=== PATIENT | male | born 1980 | race Caucasian/White ===

== ENCOUNTER 2017-12-21 16:07 | Emergency (ER) | payer OTHER ==
[2017-12-21 16:23] VITALS: BP 134/94
[2017-12-21] MEDS ORDERED: HYDROmorphone 0.5 MG/0.5 ML SYRINGE IVPUSH ONE ×2 (16:34→18:24)
[2017-12-21] MEDS ORDERED: Metoclopramide 10 MG/2 ML SDV IVPUSH ONE (16:34)
[2017-12-21] MEDS ORDERED: Ketorolac 30 MG/ML SDV IVPUSH SCH (16:45)
[2017-12-21] MEDS ORDERED: Sodium Chloride 0.9% 1,000 ML IV SCH (16:45)
--- NOTE | 2017-12-21 16:45 | EDM.PDOC ---
ED HPI GENERAL MEDICAL PROBLEM - General Chief Complaint: Genitourinary Problem Stated Complaint: KIDNEY STONES Time Seen by Provider: 12/21/17 16:33 Source of Information: Reports: Patient History Limitations: Reports: No Limitations - History of Present Illness INITIAL COMMENTS - FREE TEXT/NARRATIVE: 37-year-old male presents to the ED with acute onset of severe left lower quadrant and pelvic pain. Patient has a history of recurrent kidney stones for many years. States on average he passes at least a stone per year. He's had lithotripsy 3. He states he's been having left flank pain left-sided abdominal pain for about a week. The pain hit very hard and was down in his pelvis and referred into his peni He states he just can't relax due to the severity of the pain to pass this stone. He does have left flank pain as well has not vomited but feels nauseated. He's not noticed any blood in his urine per se today.s. Onset: Today Onset Date: 12/21/17 Onset Time: 12:00 Duration: Hour(s): (Sudden onset of severe left lower quadrant abdominal pain referred to the penis.) Location: Reports: Abdomen (Left lower quadrant of the abdomen with referred pain to the penis.), Back ( Suspect renal colic. Left left flank pain.) Quality: Reports: Ache, Sharp, Stabbing Severity: Severe Improves with: Reports: None (Pain is 8 or 9 at 10. There are near made him faint when it hit at noon today.) Worsens with: Reports: None Context: Reports: Other. Denies: Activity, Exercise, Lifting, Sick Contact, Trauma Associated Symptoms: Reports: Nausea/Vomiting. Denies: Confusion (History of passing multiple kidney stones.), Chest Pain, cough w sputum, Diaphoresis, Fever /Chills, Headaches, Loss of Appetite, Malaise, Rash, Seizure, Shortness of Breath, Syncope Treatments BOLT THREADER: Reports: Other (see below) Other Treatments BOLT THREADER: none Bladder Pain Score (Numeric/FACES): 7 - Related Data Allergies Allergy/AdvReac Type Severity Reaction Status Date / Time No Known Allergies Allergy Verified 08/29/15 11:16 Home Meds: Home Meds oxyCODONE HCl/Acetaminophen [Percocet 5-325 mg Tablet] 1 - 2 each PO Q4H PRN # 20 tablet 12/21/17 [Rx] Past Medical History Genitourinary History: Reports: Pyelonephritis, Renal Calculus Other Genitourinary History: Kidney Stones, Left Sponge Kidney Psychiatric History: Reports: Anxiety, PTSD - Past Surgical History Male Surgical History: Reports: Lithotripsy (ESWL) Social & Family History - Tobacco Use Smoking Status *Q: Current Every Day Smoker Years of Tobacco use: 25 Packs/Tins Daily: 1 - Caffeine Use Caffeine Use: Reports: Coffee, Soda - Recreational Drug Use Recreational Drug Use: No - Living Situation & Occupation Living situation: Reports: Single Occupation: Employed ED ROS GENERAL - Review of Systems Review Of Systems: See Below Constitutional: Reports: Decreased Appetite. Denies: Fever, Chills, Malaise, Weakness, Fatigue, Weight Loss HEENT: Reports: No Symptoms Respiratory: Reports: No Symptoms Cardiovascular: Reports: No Symptoms Endocrine: Reports: No Symptoms GI/Abdominal: Reports: Abdominal Pain (Left lower quadrant suprapubic pressure discomfort.) : Reports: Flank Pain (Left flank pain.), Other (Severe pain felt in his penis. Either referred pain or perhaps stone is embedded in the penile urethra.) Skin: Reports: No Symptoms Neurological: Reports: No Symptoms ED EXAM, RENAL/ - Physical Exam Exam: See Below Exam Limited By: No Limitations General Appearance: Alert, WD/WN, Moderate Distress (He is in obvious discomfort.) Eye Exam: Bilateral Eye: Normal Inspection Neck: Normal Inspection, Supple, Non-Tender, Full Range of Motion. No: Lymphadenopathy (L), Lymphadenopathy (R) Respiratory/Chest: No Respiratory Distress, Lungs Clear, Normal Breath Sounds Cardiovascular: Normal Peripheral Pulses, Regular Rate, Rhythm, No Edema, No Gallop, No Murmur GI/Abdominal: Normal Bowel Sounds, Soft, Non-Tender, No Organomegaly, No Abnormal Bruit, No Mass (Male) Exam: No Hernia Back Exam: CVA Tenderness (L) (Moderate). No: CVA Tenderness (R) Extremities: Normal Inspection, Normal Range of Motion, Non-Tender Neurological: Alert, Oriented, CN II-XII Intact, Normal Cognition, Normal Gait Psychiatric: Normal Affect, Normal Mood Skin Exam: Warm, Dry, Intact, Normal Color, No Rash Course - Vital Signs Last Recorded V/S: Last Vital Signs Temp 37.7 C 12/21/17 16:20 Pulse 91 12/21/17 16:20 Resp 20 12/21/17 16:20 BP 134/94 H 12/21/17 16:20 Pulse Ox 98 12/21/17 16:20 - Orders/Labs/Meds Orders: Active Orders 24 hr Category Date Time Status UA W/MICROSCOPIC [URIN] Stat Lab 12/21/17 16:28 Ordered Labs: Laboratory Tests 12/21/17 Range/Units 16:28 Urine Color Yellow (Yellow) Urine Appearance Slt cloudy H (Clear) Urine pH 5.5 (5.0-8.0) Ur Specific [place] > or = 1.030 (1.005-1.030) Urine Protein 2+ H (Negative) Urine Glucose (UA) Negative (Negative) Urine Ketones Negative (Negative) Urine Occult Blood 3+ H (Negative) Urine Nitrite Negative (Negative) Urine Bilirubin Negative (Negative) Urine Urobilinogen 0.2 (0.2-1.0) Ur Leukocyte Esterase Negative (Negative) Urine RBC 10-20 H (0-5) /hpf Urine WBC 0-5 (0-5) /hpf Ur Epithelial Cells 0-5 (0-5) /hpf Urine Bacteria Not seen (FEW) /hpf Urine Mucus Moderate H (FEW) /hpf Meds: Medications Discontinued Medications Generic Name Dose Route Start Last Admin Trade Name Jersonq PRN Reason Stop Dose Admin Hydromorphone HCl 0.5 mg 12/21/17 16:34 12/21/17 16:43 Dilaudid IVPUSH 12/21/17 16:35 0.5 mg ONETIME ONE Administration Hydromorphone HCl 0.5 mg 12/21/17 18:24 12/21/17 18:29 Dilaudid IVPUSH 12/21/17 18:25 0.5 mg ONETIME ONE Administration Sodium Chloride 1,000 mls @ 150 mls/hr 12/21/17 16:45 12/21/17 16:42 Normal Saline IV 150 mls/hr ASDIRECTED FIDELIA Administration Ketorolac Tromethamine 30 mg 12/21/17 16:45 12/21/17 16:48 Toradol IVPUSH 30 mg ONETIME FIDELIA Administration Metoclopramide HCl 7.5 mg 12/21/17 16:34 12/21/17 16:43 Reglan IVPUSH 12/21/17 16:35 7.5 mg ONETIME ONE Administration - Radiology Interpretation Free Text/Narrative:: 37-year-old male presents to the ED with acute onset of severe left lower quadrant abdominal pain rating towards his penis. He is actually holding onto his penis due to the severity of the pain on rocking back and forth in pain. Patient has a history of passing multiple kidney stones over multiple years. He' s had lithotripsy 3 in the past. He brings a container the contain multiple small stones. Is on average he passes one every 6 months to a year. Current pain started in his left flank about a week ago and is been nagging away abdomen for the last week. Today at noon the pain hit suddenly and severely in his left lower quadrant radiating towards his groin and penis. He is unsure if the stone is in his penile urethra or just feels like it is. At any rate he came to the ED seeking analgesia. Plan IV normal saline 150 mils per hour. Toradol 30 mg IV with Reglan 7.5 mg IV and Dilaudid 0.5 mg IV for acute pain relief. - Re-Assessments/Exams Free Text/Narrative Re-Assessment/Exam: 12/21/17 17:30 patient has been able to squeeze out a bit of urine. He still is in pain but he states it's tolerable at this point time. He still feels the pain is in his penis. Unclear if this is referred or if the stone is truly in his penile shaft or prostatic urethra. Plan I'm going to x-ray his pelvis and hopefully visualize the penile shaft as well to see if there is a stone that we may be able to remove with a small catheter.Urinalysis shows 2+ protein 3+ occult blood on the dip. Leukocyte Estrace was negative. On the micro-there is tender 20 RBCs per high-power field and moderate amount of mucus. 12/21/17 18:36 pelvis x-ray was not that useful. Survey do not show any stone within the penile urethra. I suspect this is a stone right at the UVJ on the left side. Patient's pain is coming back and we bit. He is a very stoic gentleman. I will give him a repeat Dilaudid 0.5 mg IV. Will be to discharge him home with a repeat or refill of Percocet 5/325 milligrams 20 tablets. He may take one or 2 every 4-6 hours as needed for pain relief. Hopefully the stone will pass within the next 24-36 hours. Departure - Departure Time of Disposition: 18:37 Disposition: Home, Self-Care 01 Condition: Fair Clinical Impression: Renal colic on left side - Discharge Information Prescriptions: oxyCODONE HCl/Acetaminophen [Percocet 5-325 mg Tablet] 1 - 2 each PO Q4H PRN # 20 tablet PRN Reason: pain relief. Instructions: Renal Colic, [id number] Referrals: PCP,None [Primary Care Provider] - Forms: ED Department Discharge Additional Instructions: Evaluation the emergency room today in regards to severe lower pelvic pain and penile pain discomfort. This appears to be due to renal colic which you have spends many times in the past. In terms that is never bothered you quite so badly in the groin and penis. This suggests that there may be a stone wedged within the penile urethra or prostatic urethra. Treated initially in the ED with IV fluids and pain medication Dilaudid 0.5 mg IV with Toradol 30 mg IV and Reglan 7.5 mg IV. This didn't relieve her pain for a period of time. Before he left your pain was coming back and therefore he a lot of 0.5 mg was repeated intravenously. Treatment at home is to drink plenty of fluids of course. May use Percocet tabs 5/3/25 milligrams strength one or 2 every 4-6 hours needed for pain relief. Note she cannot operate a motor vehicle or machinery if you are under the influence of narcotic pain medication. Stone typically will pass within the next 24-48 hours. If pain worsens or nausea vomiting occurs return to the ED for pain management.
--- NOTE | 2017-12-21 19:16 | CR ---
Pelvis: AP view of the pelvis was obtained. Calcifications within the left pelvis noted and it is difficult to exclude left ureteral calculi. Other calcifications appear to represent phleboliths. No calcifications are seen along the course of the prostate urethra or penile urethra. Joint spaces within both hips are maintained. Multiple calcifications are seen overlying the left kidney compatible with renal calculi. No additional abnormality is seen. Impression: 1. Renal calculi. Calcifications along the left pelvis and difficult to exclude ureteral calculi. 2. No calcifications in the region of the prostate urethra or penile urethra. 3. AP pelvis study is otherwise unremarkable. Diagnostic code #3
== END 2017-12-21 18:46 | disposition home or self-care (01) ==
LOC: JD.ED 16:07
DX: N23 Unspecified renal colic (principal); F17.210 Nicotine dependence, cigarettes, uncomplicated
CPT/HCPCS: 72170; 81001; 96361; 96374; 96375; 96376; 99284; J1170; J1885; J2765; J7040

== ENCOUNTER 2018-12-04 08:25 | Emergency (ER) | payer BC, OTHER ==
[2018-12-04] MEDS ORDERED: Sodium Chloride 0.9% 10 ML Syringe FLUSH PRN (08:41)
[2018-12-04] MEDS ORDERED: Ondansetron 4 MG/2 ML SDV IVPUSH ONE (08:41)
[2018-12-04] MEDS ORDERED: HYDROmorphone 1 MG/ML Syringe IVPUSH ONE ×2 (08:42→10:50)
[2018-12-04] MEDS ORDERED: Ketorolac 30 MG/ML SDV IVPUSH ONE (08:42)
[2018-12-04] MEDS ORDERED: Sodium Chloride 0.9% 1,000 ML IV SCH (08:45)
[2018-12-04 08:46] VITALS: BP 148/90
--- NOTE | 2018-12-04 09:37 | EDM.PDOC ---
ED HPI GENERAL MEDICAL PROBLEM - General Chief Complaint: Flank Pain Stated Complaint: POSSIBLE KIDNEY STONE Time Seen by Provider: 12/04/18 08:36 Source of Information: Reports: Patient History Limitations: Reports: No Limitations - History of Present Illness INITIAL COMMENTS - FREE TEXT/NARRATIVE: The patient presents with left flank pain and left sided abdominal pain. This started this morning. He has nausea and vomiting. 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 He had lithotripsy X 2. His last one was about 4 to 5 years ago before he moved up here from [place]. He has not had much problems since then. He has had kidney stones since he was 14. He says lately he will have some discomfort and pass them without problems. He has more pain now, nausea and vomiting. He has no fever, chills, cough, congestion or runny nose. He denies having any other health problems. Onset: Sudden Duration: Hour(s): Location: Reports: Abdomen, Back Quality: Reports: Sharp Severity: Severe Improves with: Reports: None Worsens with: Reports: None Associated Symptoms: Reports: Nausea/Vomiting. Denies: Chest Pain, Cough, Fever /Chills, Headaches, Shortness of Breath Left Flank Pain Score (Numeric/FACES): 7 - Related Data Allergies Allergy/AdvReac Type Severity Reaction Status Date / Time No Known Allergies Allergy Verified 12/04/18 08:40 Home Meds: Home Meds Ciprofloxacin HCl [Cipro] 500 mg PO BID #10 tablet 12/04/18 [Rx] oxyCODONE HCl/Acetaminophen [Percocet 5-325 mg Tablet] 1 - 2 each PO Q6HR PRN # 20 tablet 12/04/18 [Rx] Past Medical History HEENT History: Reports: None Cardiovascular History: Reports: None Respiratory History: Reports: None Gastrointestinal History: Reports: None Genitourinary History: Reports: Pyelonephritis, Renal Calculus Other Genitourinary History: Kidney Stones, Left Sponge Kidney Musculoskeletal History: Reports: None Neurological History: Reports: None Psychiatric History: Reports: Anxiety, PTSD Endocrine/Metabolic History: Reports: None Immunologic History: Reports: None Oncologic (Cancer) History: Reports: None Dermatologic History: Reports: None - Infectious Disease History Infectious Disease History: Reports: None - Past Surgical History Head Surgeries/Procedures: Reports: None HEENT Surgical History: Reports: None Cardiovascular Surgical History: Reports: None Male Surgical History: Reports: Lithotripsy (ESWL) Neurological Surgical History: Reports: None Social & Family History - Family History Family Medical History: Noncontributory GI: Reports: None : Reports: Renal Calculus Endocrine/Metabolic: Reports: Diabetes, type II - Tobacco Use Packs/Tins Daily: 1 - Caffeine Use Caffeine Use: Reports: Coffee - Recreational Drug Use Recreational Drug Use: Yes Drug Use in Last 12 Months: No Recreational Drug Type: Reports: Methamphetamine Recreational Drug Use Frequency: Not Used In Over 6 Months - Living Situation & Occupation Living situation: Reports: Single Occupation: Employed ED ROS GENERAL - Review of Systems Review Of Systems: See Below Constitutional: Reports: No Symptoms HEENT: Reports: No Symptoms Respiratory: Reports: No Symptoms Cardiovascular: Reports: No Symptoms Endocrine: Reports: No Symptoms GI/Abdominal: Reports: Abdominal Pain, Nausea, Vomiting. Denies: Diarrhea : Reports: Flank Pain Musculoskeletal: Reports: Back Pain ED EXAM, RENAL/ - Physical Exam Exam: See Below Exam Limited By: No Limitations General Appearance: Alert, No Apparent Distress Ears: Normal External Exam Nose: Normal Inspection Head: Atraumatic, Normocephalic Neck: Normal Inspection Respiratory/Chest: No Respiratory Distress, Lungs Clear, Normal Breath Sounds Cardiovascular: Regular Rate, Rhythm, No Edema, No Murmur GI/Abdominal: Soft, No Organomegaly, No Mass, Tender (Moderate to the left lower abdomen) Back Exam: CVA Tenderness (L) Extremities: Normal Inspection Neurological: Alert, Oriented, No Motor/Sensory Deficits Course - Vital Signs Last Recorded V/S: Last Vital Signs Temp 98.2 F 12/04/18 08:44 Pulse 94 12/04/18 08:44 Resp 16 12/04/18 08:44 BP 148/90 H 12/04/18 08:44 Pulse Ox 96 12/04/18 08:44 - Orders/Labs/Meds Orders: Active Orders 24 hr Category Date Time Status Peripheral IV Care [RC] . DIRECTED Care 12/04/18 08:41 Active CULTURE URINE [RM] Stat Lab 12/04/18 09:00 Received Sodium Chloride 0.9% [Normal Saline] 1,000 ml Med 12/04/18 08:45 Active IV ASDIRECTED Sodium Chloride 0.9% [Saline Flush] Med 12/04/18 08:41 Active 10 ml FLUSH ASDIRECTED PRN ED Antiemetic Medication Reflex [OM.PC] Stat Oth 12/04/18 08:41 Ordered Peripheral IV Insertion Adult [OM.PC] Stat Oth 12/04/18 08:41 Ordered Medication Orders Sodium Chloride (Normal Saline) 1,000 mls @ 125 mls/hr IV ASDIRECTED FIDELIA Last Admin: 12/04/18 08:59 Dose: 125 mls/hr Sodium Chloride (Saline Flush) 10 ml FLUSH ASDIRECTED PRN PRN Reason: Keep Vein Open Last Admin: 12/04/18 09:00 Dose: 10 ml Labs: Laboratory Tests 12/04/18 12/04/18 12/04/18 Range/Units 08:30 08:30 09:00 WBC 6.18 (4.23-9.07) K/mm3 RBC 4.93 (4.63-6.08) M/mm3 Hgb 14.1 (13.7-17.5) gm/L Hct 43.0 (40.1-51.0) % MCV 87.2 (79.0-92.2) fl MCH 28.6 (25.7-32.2) pg MCHC 32.8 (32.2-35.5) g/dl RDW Std Deviation 42.9 (35.1-43.9) fL Plt Count 286 (163-337) K/mm3 MPV 10.5 (9.4-12.3) fl Neut % (Auto) 55.7 (34.0-67.9) % Lymph % (Auto) 31.4 (21.8-53.1) % [place] % (Auto) 8.7 (5.3-12.2) % Eos % (Auto) 3.2 (0.8-7.0) Baso % (Auto) 0.8 (0.1-1.2) % Neut # (Auto) 3.44 (1.78-5.38) K/mm3 Lymph # (Auto) 1.94 (1.32-3.57) K/mm3 [place] # (Auto) 0.54 (0.30-0.82) K/mm3 Eos # (Auto) 0.20 (0.04-0.54) K/mm3 Baso # (Auto) 0.05 (0.01-0.08) K/mm3 Sodium 138 (136-145) mEq/L Potassium 4.0 (3.5-5.1) mEq/L Chloride 104 (98-107) mEq/L Carbon Dioxide 24 (21-32) mEq/L Anion Gap 14.0 (5-15) BUN 12 (7-18) mg/dL Creatinine 1.3 (0.7-1.3) mg/dL Est Cr Clr Drug Dosing 74.14 mL/min Estimated GFR (MDRD) > 60 (>60) mL/min BUN/Creatinine Ratio 9.2 L (14-18) Glucose 114 H (74-106) mg/dL Calcium 9.0 (8.5-10.1) mg/dL Total Bilirubin 0.2 (0.2-1.0) mg/dL AST 18 (15-37) U/L ALT 25 (16-63) U/L Alkaline Phosphatase 92 (46-116) U/L Total Protein 8.0 (6.4-8.2) g/dl Albumin 3.8 (3.4-5.0) g/dl Globulin 4.2 gm/dL Albumin/Globulin Ratio 0.9 L (1-2) Lipase 154 (73-393) U/L Urine Color Yellow (Yellow) Urine Appearance Slt cloudy H (Clear) Urine pH 5.5 (5.0-8.0) Ur Specific [place] > or = 1.030 (1.005-1.030) Urine Protein 2+ H (Negative) Urine Glucose (UA) Negative (Negative) Urine Ketones Negative (Negative) Urine Occult Blood 3+ H (Negative) Urine Nitrite Negative (Negative) Urine Bilirubin Negative (Negative) Urine Urobilinogen 0.2 (0.2-1.0) Ur Leukocyte Esterase Trace H (Negative) Urine RBC 50-75 H (0-5) /hpf Urine WBC 10-20 H (0-5) /hpf Ur Epithelial Cells 0-5 (0-5) /hpf Urine Bacteria Few H (FEW) /hpf Urine Mucus Many H (FEW) /hpf Meds: Medications Generic Name Dose Route Start Last Admin Trade Name Freq PRN Reason Stop Dose Admin Sodium Chloride 1,000 mls @ 125 mls/hr 12/04/18 08:45 12/04/18 08:59 Normal Saline IV 125 mls/hr ASDIRECTED FIDELIA Administration Sodium Chloride 10 ml 12/04/18 08:41 12/04/18 09:00 Saline Flush FLUSH 10 ml ASDIRECTED PRN Administration Keep Vein Open Discontinued Medications Generic Name Dose Route Start Last Admin Trade Name Freq PRN Reason Stop Dose Admin Hydromorphone HCl 1 mg 12/04/18 08:42 12/04/18 08:58 Dilaudid IVPUSH 12/04/18 08:43 1 mg ONETIME ONE Administration Hydromorphone HCl 1 mg 12/04/18 10:50 12/04/18 11:15 Dilaudid IVPUSH 12/04/18 10:51 1 mg ONETIME ONE Administration Hydromorphone HCl 0.5 mg 12/04/18 11:53 12/04/18 12:01 Dilaudid IVPUSH 12/04/18 11:54 0.5 mg ONETIME ONE Administration Ketorolac Tromethamine 30 mg 12/04/18 08:42 12/04/18 08:57 Toradol IVPUSH 12/04/18 08:43 30 mg ONETIME ONE Administration Ondansetron HCl 4 mg 12/04/18 08:41 12/04/18 08:56 Zofran IVPUSH 12/04/18 08:42 4 mg ONETIME ONE Administration - Re-Assessments/Exams Free Text/Narrative Re-Assessment/Exam: 12/04/18 09:36 I ordered an IV NS at 125mL/hr, zofran 4mg IV, labs, UA, CT of his abdomen and pelvis without contrast, dilaudid 1mg IV and toradol 30mg IV. 12/04/18 11:54 His CBC and CMP look good. His UA shows blood and there is some leukocyte esterase and WBCs with bacteria. I will culture his urine and get him on some cipro. His UA shows 1.5cm partially obstructing calculus within the left renal pelvis near the UPJ. Additional partially obstructing calculus within the mid left ureter measuring 5mm. Multiple nonobstructing calculi within both kidneys. Other incidental findings as noted above. I called Dr Heart in [place] the urologist electronic system engineer at [facility] and he will have someone from his office call the patient with a time to come in. He is probably going to have to do surgery. I gave him something more for pain. Departure - Departure Time of Disposition: 12:25 Disposition: Home, Self-Care 01 Condition: Fair Clinical Impression: UTI, Urinary tract infectious disease, Ureteric colic, Renal colic on left side , Nephrolithiasis - Discharge Information *PRESCRIPTION DRUG MONITORING PROGRAM REVIEWED*: No *COPY OF PRESCRIPTION DRUG MONITORING REPORT IN PATIENT JED: No Prescriptions: oxyCODONE HCl/Acetaminophen [Percocet 5-325 mg Tablet] 1 - 2 each PO Q6HR PRN # 20 tablet PRN Reason: Pain Ciprofloxacin HCl [Cipro] 500 mg PO BID #10 tablet Referrals: PCP,None [Primary Care Provider] - Toño Sherman MD [Ordering Only Provider] - 1 Week Forms: ED Department Discharge Additional Instructions: Take the cipro 2 times per day for 5 days. Take the percocet as needed for pain. Dr Heart's office will call you with a time this week to see him. If you do not hear from him by tomorrow, call his office. Please return if you are worse. - My Orders Last 24 Hours: My Active Orders 12/04/18 08:41 Peripheral IV Care [RC] . DIRECTED Sodium Chloride 0.9% [Saline Flush] 10 ml FLUSH ASDIRECTED PRN ED Antiemetic Medication Reflex [OM.PC] Stat Peripheral IV Insertion Adult [OM.PC] Stat 12/04/18 08:45 Sodium Chloride 0.9% [Normal Saline] 1,000 ml IV ASDIRECTED 12/04/18 09:00 CULTURE URINE [RM] Stat - Assessment/Plan Last 24 Hours: My Active Orders 12/04/18 08:41 Peripheral IV Care [RC] . DIRECTED Sodium Chloride 0.9% [Saline Flush] 10 ml FLUSH ASDIRECTED PRN ED Antiemetic Medication Reflex [OM.PC] Stat Peripheral IV Insertion Adult [OM.PC] Stat 12/04/18 08:45 Sodium Chloride 0.9% [Normal Saline] 1,000 ml IV ASDIRECTED 12/04/18 09:00 CULTURE URINE [RM] Stat
--- NOTE | 2018-12-04 10:13 | CT ---
CT abdomen and pelvis Technique: Multiple axial sections were obtained from above the dome of the diaphragm inferiorly through the pubic symphysis. Intravenous and oral contrast was not utilized. Study has been performed as a ureteral stone protocol. Comparison: No prior CT exam, previous abdominal x-ray of 03/11/15. Numerous renal calculi are seen within both kidneys. One calcification within the left kidney lies within the left renal pelvis close to the UPJ. This calcification measures 1.5 cm and likely causes mild partial obstruction of the more proximal collecting system. Partially obstructing stone is noted within the mid left ureter measuring 5 mm in size which is located slightly below the level of the pelvic brim. No additional ureteral calculi are seen. Visualized lung bases show nothing acute. Liver has an unremarkable noncontrast appearance. Spleen appears within normal limits. Adrenal glands show no nodule. Pancreas appears within normal limits. Gallbladder contains no calcified gallstones. Aorta shows no aneurysm. Appendix is seen which is normal. No pelvic mass or adenopathy is appreciated. No free fluid or inflammatory change is seen. Bone window settings were reviewed which show disc space narrowing at L5-S1 with vacuum phenomena. Impression: 1. 1.5 cm partially obstructing calculus within the left renal pelvis near the UPJ. Additional partially obstructing calculus within the mid left ureter measuring 5 mm. 2. Multiple nonobstructing calculi within both kidneys. 3. Other incidental finding as noted above. Diagnostic code #3
[2018-12-04] MEDS ORDERED: HYDROmorphone 0.5 MG/0.5 ML Syringe IVPUSH ONE (11:53)
== END 2018-12-04 12:38 | disposition home or self-care (01) ==
LOC: JD.ED 08:25
DX: N20.2 Calculus of kidney with calculus of ureter (principal); N23 Unspecified renal colic; N39.0 Urinary tract infection, site not specified; F17.210 Nicotine dependence, cigarettes, uncomplicated; Z79.899 Other long term (current) drug therapy
CPT/HCPCS: 36415; 74176; 80053; 81001; 83690; 85025; 87086; 96361; 96374; 96375; 96376; 99284; J1170; J1885; J2405; J7040

== ENCOUNTER 2018-12-22 17:37 | Emergency (ER) | payer BC ==
[2018-12-22 17:46] VITALS: BP 171/96
[2018-12-22] MEDS ORDERED: HYDROmorphone 1 MG/ML Syringe IM ONE (17:55)
--- NOTE | 2018-12-22 18:07 | EDM.PDOC ---
ED HPI GENERAL MEDICAL PROBLEM - General Chief Complaint: Genitourinary Problem Stated Complaint: ABDOMINAL PAIN Time Seen by Provider: 12/22/18 17:45 Source of Information: Reports: Patient, Old Records, RN Notes Reviewed History Limitations: Reports: No Limitations - History of Present Illness INITIAL COMMENTS - FREE TEXT/NARRATIVE: Patient is a 38-year-old male who presents to the ED for the evaluation of abdominal pain. The patient notes a history of medullary sponge kidney disease , for which he had a PCNL procedure done by the urologist Dr. Sherman on 12/13 , and was sent home with a left-sided nephrostomy tube. He states that he was getting dressed yesterday, and he accidentally tugged on the tube, since then he has been having increased pain that has not subsided with his use of Toradol and oxycodone. He did phone Dr. Sherman in [place], and Dr. Sherman told him to come to the ER to have a CT done to make sure that the balloon did not become dislodged. The patient notes that he feels the pain into his testicles as well. The also states that he has been having some mild anterior abdominal pain since the procedure as well. Dr. Sherman thinks that this might be some free fluid in his pelvis as well from the procedure, as there were some minor complications due to the blowing up of the balloon. Pelvic Pain Score (Numeric/FACES): 8 - Related Data Allergies Allergy/AdvReac Type Severity Reaction Status Date / Time No Known Allergies Allergy Verified 12/22/18 17:46 Home Meds: Home Meds oxyCODONE HCl/Acetaminophen [Percocet 5-325 mg Tablet] 1 - 2 each PO Q6HR PRN # 20 tablet 12/04/18 [Rx] Acetaminophen/oxyCODONE [Percocet 325-5 MG] 1 each PO Q6H PRN #30 tab 12/22/18 [ Rx] Ketorolac [Toradol] 10 mg PO Q6H PRN 12/22/18 [History] Ondansetron [Zofran ODT] 4 mg PO Q8H PRN #28 tab.dis 12/22/18 [Rx] Past Medical History HEENT History: Reports: None Cardiovascular History: Reports: None Respiratory History: Reports: None Gastrointestinal History: Reports: None Genitourinary History: Reports: Pyelonephritis, Renal Calculus Other Genitourinary History: Kidney Stones, Left Sponge Kidney Musculoskeletal History: Reports: None Neurological History: Reports: None Psychiatric History: Reports: Anxiety, PTSD Endocrine/Metabolic History: Reports: None Immunologic History: Reports: None Oncologic (Cancer) History: Reports: None Dermatologic History: Reports: None - Infectious Disease History Infectious Disease History: Reports: None - Past Surgical History Head Surgeries/Procedures: Reports: None HEENT Surgical History: Reports: None Cardiovascular Surgical History: Reports: None Male Surgical History: Reports: Lithotripsy (ESWL) Neurological Surgical History: Reports: None Social & Family History - Family History Family Medical History: Noncontributory GI: Reports: None : Reports: Renal Calculus Endocrine/Metabolic: Reports: Diabetes, type II - Tobacco Use Smoking Status *Q: Never Smoker - Caffeine Use Caffeine Use: Reports: Coffee - Recreational Drug Use Recreational Drug Use: No - Living Situation & Occupation Living situation: Reports: Single Occupation: Employed ED ROS GENERAL - Review of Systems Review Of Systems: See Below Constitutional: Denies: Fever, Chills HEENT: Reports: No Symptoms Respiratory: Reports: No Symptoms Cardiovascular: Reports: No Symptoms Endocrine: Reports: No Symptoms GI/Abdominal: Reports: Abdominal Pain (left lower abd pain) : Reports: Other (catheter pain) Musculoskeletal: Reports: No Symptoms Skin: Reports: No Symptoms Neurological: Reports: No Symptoms Psychiatric: Reports: No Symptoms Hematologic/Lymphatic: Reports: No Symptoms Immunologic: Reports: No Symptoms ED EXAM, RENAL/ - Physical Exam Exam: See Below Exam Limited By: No Limitations General Appearance: Alert, WD/WN, Mild Distress Eye Exam: Bilateral Eye: Normal Inspection Ears: Normal External Exam Nose: Normal Inspection Throat/Mouth: Normal Inspection Head: Atraumatic, Normocephalic Neck: Normal Inspection Respiratory/Chest: No Respiratory Distress, Lungs Clear, Normal Breath Sounds, No Accessory Muscle Use, Chest Non-Tender Cardiovascular: Normal Peripheral Pulses, Regular Rate, Rhythm, No Murmur GI/Abdominal: Normal Bowel Sounds, Soft, Non-Tender, No Distention, No Mass (Male) Exam: Deferred (nephrostomy tube out of top of jeans noted) Extremities: Normal Inspection, Normal Capillary Refill Neurological: Alert, Oriented, Normal Cognition, No Motor/Sensory Deficits Psychiatric: Normal Affect, Normal Mood Skin Exam: Warm, Dry, Intact, Normal Color, No Rash Course - Vital Signs Last Recorded V/S: Last Vital Signs Temp 98.7 F 12/22/18 17:43 Pulse 99 12/22/18 17:43 Resp 16 12/22/18 17:43 BP 171/96 H 12/22/18 17:43 Pulse Ox 98 12/22/18 17:43 - Orders/Labs/Meds Meds: Medications Discontinued Medications Generic Name Dose Route Start Last Admin Trade Name Freq PRN Reason Stop Dose Admin Hydromorphone HCl 1 mg 12/22/18 17:55 12/22/18 18:03 Dilaudid IM 12/22/18 17:56 1 mg ONETIME ONE Administration Ondansetron HCl 4 mg 12/22/18 19:13 Zofran Odt PO 12/22/18 19:14 ONETIME ONE - Re-Assessments/Exams Free Text/Narrative Re-Assessment/Exam: 12/22/18 18:09 Patient presents to the ED for the evaluation of a possible displaced nephrostomy tube. I have ordered 1 mg IM Dilaudid and an abdomen pelvis CT without contrast for further evaluation. 12/22/18 19:[address] is done, and demonstrates the catheter in satisfactory position, the patient has not pulled the catheter out of position at this time. RN notified me that he did not get much relief from the Dilaudid, but was feeling nauseous. I have ordered 4 mg ODT Zofran for his nausea. Departure - Departure Time of Disposition: 19:37 Disposition: Home, Self-Care 01 Condition: Fair Clinical Impression: LLQ pain - Discharge Information *PRESCRIPTION DRUG MONITORING PROGRAM REVIEWED*: No *COPY OF PRESCRIPTION DRUG MONITORING REPORT IN PATIENT JED: No Prescriptions: Acetaminophen/oxyCODONE [Percocet 325-5 MG] 1 each PO Q6H PRN #30 tab PRN Reason: Pain Ondansetron [Zofran ODT] 4 mg PO Q8H PRN #28 tab.dis PRN Reason: Nausea Instructions: Opioid Pain Medicine Information, [id number] Referrals: PCP,None [Primary Care Provider] - Forms: ED Department Discharge Additional Instructions: You have been evaluated in the ED tonight for abdominal pain. Your CT demonstrated that the nephrostomy tube is in good placement, and has not become dislodged. You have been given a prescription for oxycodone 5/325 please take one tab every 6 hours as needed for pain relief. You have been given a prescription for Zofran please take one tab under your tongue every 8 hours as needed for nausea. These have been electronically sent to the [place] pharmacy located in the [facility]. Please follow up with your urologist next Tuesday as previously scheduled. Please return to the ED if your symptoms should change or worsen.
--- NOTE | 2018-12-22 18:57 | CT ---
CT abdomen and pelvis Technique: Multiple axial sections were obtained from above the kidneys inferiorly through the pubic symphysis. Intravenous oral contrast not utilized. Findings: Left-sided nephrostomy tube is seen. End of the nephrostomy tube is coiled within the renal pelvis. Left ureteral stent is also seen which appears coiled within the renal pelvis. Distal end of the stent does not lie within the bladder and terminates within the distal ureter. Multiple small nonobstructing calculi are seen within both kidneys. Largest calcification overlies the nephrostomy tube and stent within the left renal pelvis. No definite calcifications are seen within the ureters at this time. Visualized adrenal glands are unremarkable. Visualized liver and spleen shows no discrete abnormality. Appendix is seen which is normal. Aorta shows no aneurysm. Visualized pancreas is normal. No retroperitoneal adenopathy or mesenteric abnormalities are seen. No pelvic mass or adenopathy is seen. Bone window settings were reviewed which shows disc space narrowing at L5-S1 with vacuum phenomena and posterior spurring. Impression: 1. Satisfactory position of left-sided nephrostomy tube with proximal tip lying within the renal pelvis. 2. Left ureteral stent is seen with proximal end being within the renal pelvis and distal end being within the distal ureter and not within the bladder. 3. Numerous calcifications within both kidneys. Largest calcification within the left renal pelvis which is seen on prior CT exam and overlaps the ureteral stent and nephrostomy tube. 4. No definite ureteral calculi are seen. 5. Other incidental findings. Diagnostic code #3
[2018-12-22] MEDS ORDERED: Ondansetron 4 MG Tab.DIS PO ONE (19:13)
== END 2018-12-22 20:00 | disposition home or self-care (01) ==
LOC: JD.ED 17:37
DX: R10.32 Left lower quadrant pain (principal); F41.9 Anxiety disorder, unspecified; Z79.899 Other long term (current) drug therapy
CPT/HCPCS: 74176; 96372; 99284; A9270; J1170

== ENCOUNTER 2019-12-31 14:47 | Inpatient (IN) | payer BC ==
[2019-12-31] MEDS ORDERED: Ondansetron 4 MG/2 ML SDV IVPUSH ONE (15:22)
[2019-12-31] MEDS ORDERED: Sodium Chloride 0.9% 10 ML Syringe FLUSH PRN (15:22)
--- NOTE | 2019-12-31 15:32 | EDM.PDOC ---
ED HPI GENERAL MEDICAL PROBLEM - General Chief Complaint: Gastrointestinal Problem Stated Complaint: VOMITING X 1 WEEK NEEDS FLUIDS Time Seen by Provider: 12/31/19 14:56 Source of Information: Reports: Patient History Limitations: Reports: No Limitations - History of Present Illness INITIAL COMMENTS - FREE TEXT/NARRATIVE: Patient is a 39-year-old male who presents to the emergency department with complaints of generalized abdominal pain and vomiting. He verbalized that he has a 10-year history of chronic opioid use, as well as a 6-year history of kratom use. He stopped using these on Tuesday, December 20. He spent 4 days in the [facility] under the care of his psychiatrist, Dr. Arredondo He is somewhat unclear about the treatment he received while at [facility]. At one point he stated that he was weaned off of his Roxicodone, however he then stated that he stopped the medication abruptly and has not taken it since 20 December. He also verbalized that he still takes 1-2 tabs of kratom daily per the direction of his psychiatrist, Dr. Arredondo, to wean off the medication. Since December 20, he has been having problems with generalized abdominal pain and vomiting. He states his symptoms are manageable during the day, however worsened significantly at night. He takes his Effexor in the morning and trazodone at night. He is not able to say if there is a correlation between when he takes his trazodone and his symptoms of nausea and vomiting. He has Zofran for nausea which he states he takes 3 times daily. His last dose was this morning. When asked about his bowel habits , patient is uncertain when he last had a good bowel movement. He states he had a small 1 this morning, however it was "abnormal" and "like a small rock ". He denies any diarrhea, fever, or respiratory complaints. Abdomen Pain Score (Numeric/FACES): 7 - Related Data Allergies Allergy/AdvReac Type Severity Reaction Status Date / Time No Known Allergies Allergy Verified 12/22/18 17:46 Home Meds: Home Meds Ondansetron [Zofran ODT] 4 mg PO Q4HR PRN 12/31/19 [History] Venlafaxine HCl [Venlafaxine ER] 37.5 mg PO DAILY 12/31/19 [History] traZODone HCl [Trazodone HCl] 75 mg PO BEDTIME 12/31/19 [History] Past Medical History HEENT History: Reports: None Cardiovascular History: Reports: None Respiratory History: Reports: None Gastrointestinal History: Reports: None Genitourinary History: Reports: Pyelonephritis, Renal Calculus Other Genitourinary History: Kidney Stones, Left Sponge Kidney Musculoskeletal History: Reports: None Neurological History: Reports: None Psychiatric History: Reports: Addiction, Anxiety, PTSD Endocrine/Metabolic History: Reports: None Immunologic History: Reports: None Oncologic (Cancer) History: Reports: None Dermatologic History: Reports: None - Infectious Disease History Infectious Disease History: Reports: None - Past Surgical History Head Surgeries/Procedures: Reports: None HEENT Surgical History: Reports: None Cardiovascular Surgical History: Reports: None Male Surgical History: Reports: Lithotripsy (ESWL) Neurological Surgical History: Reports: None Social & Family History - Family History Family Medical History: Noncontributory GI: Reports: None : Reports: Renal Calculus Endocrine/Metabolic: Reports: Diabetes, type II - Caffeine Use Caffeine Use: Reports: Coffee - Recreational Drug Use Recreational Drug Use: Yes Drug Use in Last 12 Months: Yes Recreational Drug Type: Reports: Oxycodone, Other (see below) Other Recreational Drug Type: KRATOM - Living Situation & Occupation Living situation: Reports: Single Occupation: Employed ED ROS GENERAL - Review of Systems Review Of Systems: See Below Constitutional: Reports: Decreased Appetite. Denies: Fever, Chills HEENT: Reports: No Symptoms Respiratory: Reports: No Symptoms Cardiovascular: Reports: No Symptoms Endocrine: Reports: No Symptoms GI/Abdominal: Reports: Abdominal Pain, Nausea, Vomiting. Denies: Black Stool, Bloody Stool, Diarrhea : Reports: No Symptoms Musculoskeletal: Reports: No Symptoms Skin: Reports: No Symptoms Neurological: Reports: No Symptoms Psychiatric: Reports: No Symptoms Hematologic/Lymphatic: Reports: No Symptoms Immunologic: Reports: No Symptoms ED EXAM, GI/ABD - Physical Exam Exam: See Below Exam Limited By: No Limitations General Appearance: Alert, WD/WN, No Apparent Distress Respiratory/Chest: No Respiratory Distress, Lungs Clear, Normal Breath Sounds, No Accessory Muscle Use, Chest Non-Tender Cardiovascular: Normal Peripheral Pulses, Regular Rate, Rhythm, No Edema, No Gallop, No JVD, No Murmur, No Rub GI/Abdominal Exam: Normal Bowel Sounds, Soft, No Mass, Tender (Generalized tenderness throughout the abdomen.). No: Distended, Guarding, Rigid, Rebound Neurological: Alert, Oriented, CN II-XII Intact, Normal Cognition, Normal Gait, Normal Reflexes, No Motor/Sensory Deficits Psychiatric: Normal Affect, Normal Mood Skin Exam: Warm, Dry, Intact, Normal Color, No Rash Course - Vital Signs Last Recorded V/S: Last Vital Signs Temp 97.9 F 12/31/19 17:29 Pulse 107 H 12/31/19 17:29 Resp 18 12/31/19 17:29 BP 129/86 12/31/19 17:29 Pulse Ox 100 12/31/19 17:29 Orthostatic Blood Pressure [ 101/74 Standing] Orthostatic Blood Pressure [ 118/87 Supine] - Orders/Labs/Meds Orders: Active Orders 24 hr Category Date Time Status Peripheral IV Care [RC] Q2HR Care 12/31/19 15:22 Active UA W/MICROSCOPIC [URIN] Stat Lab 12/31/19 20:30 Received Sodium Chloride 0.9% [Saline Flush] Med 12/31/19 15:22 Active 10 ml FLUSH ASDIRECTED PRN Peripheral IV Insertion Adult [OM.PC] Stat Oth 12/31/19 15:22 Ordered Medication Orders Acetaminophen (Tylenol) 650 mg PO Q4H PRN PRN Reason: Pain (Mild 1-3)/fever Potassium Chloride 10 meq/ (Premix) 100 mls @ 100 mls/hr IV Q1H [facility] Stop: 01/01/20 02:29 Potassium Chloride/Dextrose/Sod Cl (D5 1/2 Ns W/ 20 Meq/L Kcl) 1,000 mls @ 150 mls/hr IV ASDIRECTED [facility] Last Admin: 12/31/19 20:41 Dose: 150 mls/hr Lorazepam (Ativan) 1 mg IVPUSH Q4H PRN PRN Reason: Anxiety Pantoprazole Sodium (Protonix Iv) 40 mg IVPUSH Q12HR [facility] Last Admin: 12/31/19 20:29 Dose: 40 mg Prochlorperazine Edisylate (Compazine) 5 mg IVPUSH Q6H PRN PRN Reason: Nausea/Vomiting Sodium Chloride (Saline Flush) 10 ml FLUSH ASDIRECTED PRN PRN Reason: Keep Vein Open Last Admin: 05/11/20 15:41 Dose: 10 ml Sucralfate (Carafate) 1 gm PO QIDACANDBED [facility] Venlafaxine HCl (Effexor Xr) 37.5 mg PO DAILY [facility] Labs: Laboratory Tests 12/31/19 12/31/19 12/31/19 Range/Units 15:40 15:40 15:40 WBC 13.50 H (4.23-9.07) K/mm3 RBC 5.82 (4.63-6.08) M/mm3 Hgb 16.5 D (13.7-17.5) gm/dl Hct 48.1 (40.1-51.0) % MCV 82.6 D (79.0-92.2) fl MCH 28.4 (25.7-32.2) pg MCHC 34.3 (32.2-35.5) g/dl RDW Std Deviation 38.3 (35.1-43.9) fL Plt Count 371 H D (163-337) K/mm3 MPV 11.4 (9.4-12.3) fl Neut % (Auto) 62.3 (34.0-67.9) % Lymph % (Auto) 23.0 (21.8-53.1) % [place] % (Auto) 13.9 H (5.3-12.2) % Eos % (Auto) 0.2 L (0.8-7.0) Baso % (Auto) 0.2 (0.1-1.2) % Neut # (Auto) 8.41 H (1.78-5.38) K/mm3 Lymph # (Auto) 3.11 (1.32-3.57) K/mm3 [place] # (Auto) 1.87 H (0.30-0.82) K/mm3 Eos # (Auto) 0.03 L (0.04-0.54) K/mm3 Baso # (Auto) 0.03 (0.01-0.08) K/mm3 Manual Slide Review Abnormal smear Sodium 133 L (136-145) mEq/L Potassium 2.4 L* D (3.5-5.1) mEq/L Chloride 88 L D (98-107) mEq/L Carbon Dioxide 36 H D (21-32) mEq/L Anion Gap 11.4 (5-15) BUN 21 H (7-18) mg/dL Creatinine 1.4 H (0.7-1.3) mg/dL Est Cr Clr Drug Dosing 70.45 mL/min Estimated GFR (MDRD) 56 (>60) mL/min BUN/Creatinine Ratio 15.0 (14-18) Glucose 111 H (74-106) mg/dL Calcium 9.8 (8.5-10.1) mg/dL Phosphorus 2.9 (2.6-4.7) mg/dL Magnesium 2.0 (1.8-2.4) mg/dl Total Bilirubin 0.6 (0.2-1.0) mg/dL AST 14 L (15-37) U/L ALT 25 (16-63) U/L Alkaline Phosphatase 106 (46-116) U/L C-Reactive Protein 0.2 (<1.0) mg/dL Total Protein 8.6 H (6.4-8.2) g/dl Albumin 3.9 (3.4-5.0) g/dl Globulin 4.7 gm/dL Albumin/Globulin Ratio 0.8 L (1-2) Lipase 316 (73-393) U/L Meds: Medications Generic Name Dose Route Start Last Admin Trade Name Freq PRN Reason Stop Dose Admin Acetaminophen 650 mg 12/31/19 19:21 Tylenol PO Q4H PRN Pain (Mild 1-3)/fever Potassium Chloride 10 meq/ 100 mls @ 100 mls/hr 01/01/20 00:30 Premix IV 01/01/20 02:29 Q1H FIDELIA Potassium Chloride/Dextrose/Sod Cl 1,000 mls @ 150 mls/hr 12/31/19 19:30 07/11 20:41 D5 1/2 Ns W/ 20 Meq/L Kcl IV 150 mls/hr ASDIRECTED FIDELIA Administration Lorazepam 1 mg 12/31/19 19:34 Ativan IVPUSH Q4H PRN Anxiety Pantoprazole Sodium 40 mg 12/31/19 21:00 12/31/19 20:29 Protonix Iv IVPUSH 40 mg Q12HR FIDELIA Administration Prochlorperazine Edisylate 5 mg 12/31/19 20:20 Compazine IVPUSH Q6H PRN Nausea/Vomiting Sodium Chloride 10 ml 12/31/19 15:22 12/31/19 15:41 Saline Flush FLUSH 10 ml ASDIRECTED PRN Administration Keep Vein Open Sucralfate 1 gm 12/31/19 22:00 Carafate PO QIDACANDBED FIDELIA Venlafaxine HCl 37.5 mg 01/01/20 09:00 Effexor Xr PO DAILY FIDELIA Discontinued Medications Generic Name Dose Route Start Last Admin Trade Name Freq PRN Reason Stop Dose Admin Sodium Chloride 1,000 mls @ 999 mls/hr 12/31/19 15:30 12/31/19 16:41 Normal Saline IV Infused ASDIRECTED FIDELIA Infusion Potassium Chloride 10 meq/ 100 mls @ 100 mls/hr 12/31/19 16:45 12/31/19 20:28 Premix IV 12/31/19 20:44 100 mls/hr Q1H FIDELIA Administration Sodium Chloride 1,000 mls @ 150 mls/hr 12/31/19 16:45 12/31/19 17:40 Normal Saline IV 150 mls/hr ASDIRECTED FIDELIA Administration Promethazine HCl 12.5 mg/ 50.5 mls @ 100 mls/hr 12/31/19 19:30 Sodium Chloride IV Q6H PRN Nausea/Vomiting Ondansetron HCl 4 mg 12/31/19 15:22 12/31/19 15:41 Zofran IVPUSH 12/31/19 15:23 4 mg ONETIME ONE Administration Ondansetron HCl 4 mg 12/31/19 19:29 Zofran IVPUSH Q4H PRN Nausea/Vomiting Trazodone HCl 75 mg 12/31/19 21:00 Trazodone PO BEDTIME FIDELIA - Re-Assessments/Exams Free Text/Narrative Re-Assessment/Exam: 12/31/19 16:44 Patient's vomiting has improved since the Zofran and IV fluids. Hematology was significant for a white count elevated at 13.5, sodium 133, potassium 2.4, chloride 88, CO2 36, BUN 21, creatinine 1.4. Patient has not been able to produce a urine thus far. Spoke to Dr. Starr, the hospitalist manager non [employer]. He accepted the patient for observation admission for hypokalemia. We attempted to contact [facility] [employer] [facility] to get a copy of the patient's records, however the individual who handles the records did not answer. Voicemail was left to call back. Patient updated on this and he is in agreement. Departure - Departure Time of Disposition: 16:45 Disposition: Refer to Observation Condition: Good Clinical Impression: Hypokalemia - Discharge Information *PRESCRIPTION DRUG MONITORING PROGRAM REVIEWED*: No *COPY OF PRESCRIPTION DRUG MONITORING REPORT IN PATIENT JED: No Sepsis Event Note - Evaluation Sepsis Screening Result: No Definite Risk - Focused Exam Vital Signs: Vital Signs Temp Pulse Resp BP Pulse Ox 12/31/19 15:00 97.5 F 108 H 16 122/93 H 100 Date Exam was Performed: 12/31/19 Time Exam was Performed: 21:18 - My Orders Last 24 Hours: My Active Orders 12/31/19 15:22 Peripheral IV Care [RC] Q2HR Sodium Chloride 0.9% [Saline Flush] 10 ml FLUSH ASDIRECTED PRN Peripheral IV Insertion Adult [OM.PC] Stat 12/31/19 20:30 UA W/MICROSCOPIC [URIN] Stat - Assessment/Plan Last 24 Hours: My Active Orders 12/31/19 15:22 Peripheral IV Care [RC] Q2HR Sodium Chloride 0.9% [Saline Flush] 10 ml FLUSH ASDIRECTED PRN Peripheral IV Insertion Adult [OM.PC] Stat 12/31/19 20:30 UA W/MICROSCOPIC [URIN] Stat
[2019-12-31] MEDS: Sodium Chloride 0.9% 1,000 ML IV SCH ×2 (15:40→17:38)
--- NOTE | 2019-12-31 15:56 | CR ---
Abdomen: Supine and upright views the abdomen were obtained. Comparison: Prior abdominal x-ray of 03/11/15. Findings: Bowel gas pattern appears normal. Several calcification overlying the left kidney possibly due to nonobstructing calculi. Numerous calcifications are seen within the pelvis most likely representing phleboliths. No free air is seen. Bony structures are unremarkable. Impression: 1. Findings as noted above. 2. Nothing acute is definitely appreciated. Diagnostic code #2 This report was dictated in MDT
[2019-12-31] MEDS ORDERED: Sodium Chloride 0.9% 1,000 ML IV SCH (16:45)
[2019-12-31] MEDS: Potassium Chloride 10 MEQ in Premix Bag 1 BAG IV SCH ×5 (16:54→23:49)
[2019-12-31] MEDS ORDERED: Ondansetron 4 MG/2 ML SDV IVPUSH PRN (19:29)
[2019-12-31] MEDS ORDERED: Promethazine 12.5 MG in Sodium Chloride 0.9% 50 ML IV PRN (19:30)
--- NOTE | 2019-12-31 19:50 | PCM.HP.2 ---
H&P History of Present Illness - General Date of Service: 12/31/19 Admit Problem/Dx: Admission Diagnosis/Problem Admission Diagnosis/Problem Hypokalemia - History of Present Illness Initial Comments - Free Text/Narative: 39-year-old male with history of narcotic abuse presents to the emergency department with over a one-week history of nausea and vomiting. Patient states that on December 20 he stopped using oxycodone and kratom. He was admitted to [facility] on December 21- and discharged on the . Patient was having continued difficulty with stopping oxycodone and kratom so he did use some over the next 4 days. Patient has not used any in the last 5 days. Patient has been abusing narcotics for approximately 10 years. Prior to December 20 he was snorting oxycodone 30 mg 7-8 times a day. He started kratom approximately 6 years ago. He was working with Dr. Tidwell in psychiatry while at the [facility]. During the day he continues to have nausea and some mild vomiting but it worsened significantly at night. He has become more weak and fatigued. Patient denies any hematemesis or coffee-ground emesis. He states that it is mostly green. He denies any change in bowel movements and no hematochezia or melena. Last bowel movement was this morning which was a small hard bowel movement. In the emergency room he was found to have a leukocytosis with WBC of 13.5, hyponatremia with sodium of 133, severe hypokalemia with potassium of 2.4, and acute kidney injury with a BUN of 21, creatinine of 1.4, and estimated GFR of 56. Liver enzymes, liver function, and lipase was normal. Abdomen Pain Score (Numeric/FACES): 7 - Related Data Allergies/Adverse Reactions: Allergies Allergy/AdvReac Type Severity Reaction Status Date / Time No Known Allergies Allergy Verified 12/22/18 17:46 Home Medications: Home Meds Ondansetron [Zofran ODT] 4 mg PO Q4HR PRN 12/31/19 [History] Venlafaxine HCl [Venlafaxine ER] 37.5 mg PO DAILY 12/31/19 [History] traZODone HCl [Trazodone HCl] 75 mg PO BEDTIME 12/31/19 [History] Past Medical History HEENT History: Reports: None Cardiovascular History: Reports: None Respiratory History: Reports: None Gastrointestinal History: Reports: None, Other (See Below) Other Gastrointestinal History: nausea Genitourinary History: Reports: Pyelonephritis, Renal Calculus Other Genitourinary History: Kidney Stones, Left Sponge Kidney Musculoskeletal History: Reports: None Neurological History: Reports: None Psychiatric History: Reports: Addiction, Anxiety, PTSD Other Psychiatric History: addiction to oxycodone 30. Just stopped taking on December 28, 2019. Endocrine/Metabolic History: Reports: None Immunologic History: Reports: None Oncologic (Cancer) History: Reports: None Dermatologic History: Reports: None - Infectious Disease History Infectious Disease History: Reports: Chicken Pox - Past Surgical History Head Surgeries/Procedures: Reports: None HEENT Surgical History: Reports: None Cardiovascular Surgical History: Reports: None Male Surgical History: Reports: Lithotripsy (ESWL) Neurological Surgical History: Reports: None Social & Family History - Family History Family Medical History: Noncontributory GI: Reports: None : Reports: Renal Calculus Endocrine/Metabolic: Reports: Diabetes, type II - Tobacco Use Smoking Status *Q: Current Every Day Smoker Years of Tobacco use: 20 Packs/Tins Daily: 10 Used Tobacco, but Quit: No Second Hand Smoke Exposure: No - Caffeine Use Caffeine Use: Reports: Coffee, Energy Drinks, Soda, Tea - Recreational Drug Use Recreational Drug Use: No Drug Use in Last 12 Months: Yes Recreational Drug Type: Reports: Oxycodone, Other (see below) Other Recreational Drug Type: KRATOM - Living Situation & Occupation Living situation: Reports: Single Occupation: Employed H&P Review of Systems - Review of Systems: Review Of Systems: Comprehensive ROS is negative, except as noted in HPI. Exam - Exam Exam: See Below - Vital Signs Vital Signs: Last Vital Signs Temp 97.5 F 12/31/19 15:00 Pulse 108 H 12/31/19 15:00 Resp 16 12/31/19 15:00 BP 122/93 H 12/31/19 15:00 Pulse Ox 100 12/31/19 15:00 Orthostatic Blood Pressure [ 101/74 Standing] Orthostatic Blood Pressure [ 118/87 Supine] Weight: 142 lb 8 oz - Exam Quality Assessment: No: Supplemental Oxygen General: Alert, Oriented, 4 HEENT: Conjunctiva Clear, Hearing Intact, Mucosa Moist & [place] Neck: Supple, Trachea Midline, 2 Lungs: Clear to Auscultation, Normal Respiratory Effort Cardiovascular: Regular Rate, Regular Rhythm GI/Abdominal Exam: Normal Bowel Sounds, Soft, No Organomegaly, No Distention, Tender (Diffusely tender most severe in the epigastrium). No: Rigid, Rebound Back Exam: Normal Inspection Extremities: Normal Inspection, Normal Range of Motion, Non-Tender, No Pedal Edema, Normal Capillary Refill Peripheral Pulses: 2+: Posterior Tibial (L), Posterior Tibial (R), Dorsalis Pedis (L), Dorsalis Pedis (R) Skin: Warm, Dry, Intact Neurological: Cranial Nerves Intact Neuro Extensive - Mental Status: Alert, Oriented x3, Normal Mood/Affect, Normal Cognition, Memory Intact Neuro Extensive - Motor, Sensory, Reflexes: CN II-XII Intact Psychiatric: Alert, Depressed - Patient Data Lab Results Last 24 hrs: Laboratory Results - last 24 hr 12/31/19 12/31/19 Range/Units 15:40 15:40 WBC 13.50 H (4.23-9.07) K/mm3 RBC 5.82 (4.63-6.08) M/mm3 Hgb 16.5 D (13.7-17.5) gm/dl Hct 48.1 (40.1-51.0) % MCV 82.6 D (79.0-92.2) fl MCH 28.4 (25.7-32.2) pg MCHC 34.3 (32.2-35.5) g/dl RDW Std Deviation 38.3 (35.1-43.9) fL Plt Count 371 H D (163-337) K/mm3 MPV 11.4 (9.4-12.3) fl Neut % (Auto) 62.3 (34.0-67.9) % Lymph % (Auto) 23.0 (21.8-53.1) % [place] % (Auto) 13.9 H (5.3-12.2) % Eos % (Auto) 0.2 L (0.8-7.0) Baso % (Auto) 0.2 (0.1-1.2) % Neut # (Auto) 8.41 H (1.78-5.38) K/mm3 Lymph # (Auto) 3.11 (1.32-3.57) K/mm3 [place] # (Auto) 1.87 H (0.30-0.82) K/mm3 Eos # (Auto) 0.03 L (0.04-0.54) K/mm3 Baso # (Auto) 0.03 (0.01-0.08) K/mm3 Manual Slide Review Abnormal smear Sodium 133 L (136-145) mEq/L Potassium 2.4 L* D (3.5-5.1) mEq/L Chloride 88 L D (98-107) mEq/L Carbon Dioxide 36 H D (21-32) mEq/L Anion Gap 11.4 (5-15) BUN 21 H (7-18) mg/dL Creatinine 1.4 H (0.7-1.3) mg/dL Est Cr Clr Drug Dosing 70.45 mL/min Estimated GFR (MDRD) 56 (>60) mL/min BUN/Creatinine Ratio 15.0 (14-18) Glucose 111 H (74-106) mg/dL Calcium 9.8 (8.5-10.1) mg/dL Total Bilirubin 0.6 (0.2-1.0) mg/dL AST 14 L (15-37) U/L ALT 25 (16-63) U/L Alkaline Phosphatase 106 (46-116) U/L C-Reactive Protein 0.2 (<1.0) mg/dL Total Protein 8.6 H (6.4-8.2) g/dl Albumin 3.9 (3.4-5.0) g/dl Globulin 4.7 gm/dL Albumin/Globulin Ratio 0.8 L (1-2) Lipase 316 (73-393) U/L Result Diagrams: 12/31/19 15:40 12/31/19 15:40 Imaging Impressions Last 24 hrs: Abdominal x-ray showed no acute findings EKG INTERPRETATION EKG Date: 12/31/19 Rhythm: NSR [place]: Normal P-Wave: Present QRS: Other (RSR) QT: Prolonged (533) Comparison: NA - No Prior EKG Sepsis Event Note - Evaluation Sepsis Screening Result: No Definite Risk - Focused Exam Vital Signs: Vital Signs Temp Pulse Resp BP Pulse Ox 12/31/19 15:00 97.5 F 108 H 16 122/93 H 100 Date Exam was Performed: 12/31/19 Time Exam was Performed: 20:20 Problem List Initiated/Reviewed/Updated: Yes Orders Last 24hrs: Active Orders 24 hr Category Date Time Status Patient Status [ADT] Routine ADT 12/31/19 16:43 Active EKG Documentation Completion [RC] STAT Care 12/31/19 19:36 Ordered Orthostatic Vital Signs [RC] ASDIRECTED Care 12/31/19 15:02 Active Oxygen Therapy [RC] PRN Care 12/31/19 19:21 Active Peripheral IV Care [RC] . DIRECTED Care 12/31/19 15:22 Active Up ad Viviana [RC] ASDIRECTED Care 12/31/19 19:21 Active VTE/DVT Education [RC] PER UNIT ROUTINE Care 12/31/19 19:21 Active Vital Signs [RC] Q4H Care 12/31/19 19:21 Active Full Liquid Diet [DIET] Diet 01/01/20 Breakfast Active CBC WITH AUTO DIFF [HEME] AM Lab 01/01/20 05:11 Ordered COMPREHENSIVE METABOLIC PN,CMP [CHEM] AM Lab 01/01/20 05:11 Ordered DRUG SCREEN, URINE [URCHEM] Stat Lab 12/31/19 16:42 Ordered MAGNESIUM [CHEM] AM Lab 01/01/20 05:11 Ordered MAGNESIUM [CHEM] Stat Lab 12/31/19 19:26 Ordered PHOSPHORUS [CHEM] Stat Lab 12/31/19 19:28 Ordered UA W/MICROSCOPIC [URIN] Stat Lab 12/31/19 15:23 Ordered Acetaminophen [Tylenol] Med 12/31/19 19:21 Ordered 650 mg PO Q4H PRN Dextrose 5%-1/2 Normal Saline with KCl 20 mEq @ 150 mL/ Med 12/31/19 19:30 Ordered Hr (1000 mL) D5 1/2 NS w/ 20 mEq/L KCl 1,000 ml IV ASDIRECTED LORazepam [Ativan] Med 12/31/19 19:34 Ordered 1 mg IVPUSH Q4H PRN Ondansetron [Zofran] Med 12/31/19 19:29 Ordered 4 mg IVPUSH Q4H PRN Pantoprazole [ProTONIX IV] Med 12/31/19 21:00 Ordered 40 mg IV Q12HR Potassium Chloride [KCl 10 MEQ in Water 100 ML] 10 meq Med 12/31/19 16:45 Active Premix Bag 1 bag IV Q1H Potassium Chloride [KCl 10 MEQ in Water 100 ML] 10 meq Med 01/01/20 00:30 Ordered Premix Bag 1 bag IV Q1H Promethazine [Phenergan] 12.5 mg Med 12/31/19 19:30 Ordered Sodium Chloride 0.9% [Normal Saline] 50 ml IV Q6H Sodium Chloride 0.9% [Normal Saline] 1,000 ml Med 12/31/19 15:30 Active IV ASDIRECTED Sodium Chloride 0.9% [Normal Saline] 1,000 ml Med 12/31/19 16:45 Active IV ASDIRECTED Sodium Chloride 0.9% [Saline Flush] Med 12/31/19 15:22 Active 10 ml FLUSH ASDIRECTED PRN Venlafaxine [Effexor XR] Med 01/01/20 09:00 Ordered 37.5 mg PO DAILY Peripheral IV Insertion Adult [OM.PC] Stat Oth 12/31/19 15:22 Ordered Resuscitation Status Routine Resus Stat 12/31/19 19:21 Ordered Medication Orders Acetaminophen (Tylenol) 650 mg PO Q4H PRN PRN Reason: Pain (Mild 1-3)/fever Sodium Chloride (Normal Saline) 1,000 mls @ 999 mls/hr IV ASDIRECTED FIDELIA Last Infusion: 12/31/19 16:41 Dose: 999 mls/hr Admin: 12/31/19 15:40 Dose: 999 mls/hr Potassium Chloride 10 meq/ (Premix) 100 mls @ 100 mls/hr IV Q1H FIDELIA Stop: 12/31/19 20:44 Last Admin: 12/31/19 19:21 Dose: 100 mls/hr Infusion: 12/31/19 19:16 Dose: 100 mls/hr Admin: 12/31/19 18:16 Dose: 100 mls/hr Infusion: 12/31/19 17:54 Dose: 100 mls/hr Admin: 12/31/19 16:54 Dose: 100 mls/hr Sodium Chloride (Normal Saline) 1,000 mls @ 150 mls/hr IV ASDIRECTED FIDELIA Last Admin: 12/31/19 17:40 Dose: 150 mls/hr Potassium Chloride 10 meq/ (Premix) 100 mls @ 100 mls/hr IV Q1H FIDELIA Stop: 01/01/20 02:29 Potassium Chloride/Dextrose/Sod Cl (D5 1/2 Ns W/ 20 Meq/L Kcl) 1,000 mls @ 150 mls/hr IV ASDIRECTED FIDELIA Promethazine HCl 12.5 mg/ (Sodium Chloride) 50.5 mls @ 100 mls/hr IV Q6H PRN PRN Reason: Nausea/Vomiting Lorazepam (Ativan) 1 mg IVPUSH Q4H PRN PRN Reason: Anxiety Ondansetron HCl (Zofran) 4 mg IVPUSH Q4H PRN PRN Reason: Nausea/Vomiting Pantoprazole Sodium (Protonix Iv) 40 mg IVPUSH Q12HR [facility] Sodium Chloride (Saline Flush) 10 ml FLUSH ASDIRECTED PRN PRN Reason: Keep Vein Open Last Admin: 12/31/19 15:41 Dose: 10 ml Venlafaxine HCl (Effexor Xr) 37.5 mg PO DAILY [facility] Assessment/Plan Comment:: 10-day history of nausea and vomiting secondary to opiate withdrawal Severe hypokalemia with mild hyponatremia Acquired QT prolongation with a QTC of 533 Dehydration Acute kidney injury Opiate abuse * Until 10 days ago patient was snorting 30 mg of oxycodone 7-8 times per day and drinking kratom. * Patient's vomiting seems to be the worst at night. * Patient was taking Zofran at home * Was seen at [facility] bed and following with Dr. Tidwell in psychiatry * Approximately 10 years of opiate use and 6 years of kratom use * 10 pound weight loss in 10 days Plan * Observation on telemetry * Potassium replacement * IV fluid resuscitation * Preferably alcohol swabs for nausea but if necessary prochlorperazine 5 mg IV as needed because of the QT prolongation * Protonix 40 mg twice daily * Carafate 1 g 4 times daily * Follow renal function and electrolytes * Get records from [facility] * Avoid nephrotoxic medications especially NSAIDs VTE prophylaxis not indicated CODE STATUS: Full code Disposition: Plan observation for 24 to 48 hours and then discharged to home. - Mortality Measure Prognosis:: Good
[2019-12-31] MEDS ORDERED: Prochlorperazine 10 MG/2 ML SDV IVPUSH PRN (20:20)
[2019-12-31] MEDS: Pantoprazole 40 MG Vial IVPUSH SCH (20:29)
[2019-12-31] MEDS: D5 1/2 NS w/ 20 mEq/L KCl 1,000 ML IV SCH (20:41)
[2019-12-31] MEDS ORDERED: traZODone 50 MG Tab PO SCH (21:00)
[2019-12-31] MEDS: LORazepam 2 MG/ML SDV IVPUSH PRN (21:37)
[2019-12-31] MEDS: Sucralfate 1 GM Tab PO SCH (21:39)
[2020-01-01] MEDS: Potassium Chloride 10 MEQ in Premix Bag 1 BAG IV SCH ×7 (00:55→16:14)
[2020-01-01] MEDS: D5 1/2 NS w/ 20 mEq/L KCl 1,000 ML IV SCH ×3 (04:12→18:41)
[2020-01-01] MEDS: Sucralfate 1 GM Tab PO SCH ×5 (06:39→21:00)
--- NOTE | 2020-01-01 08:15 | PCM.PN ---
- General Info Date of Service: 01/01/20 Admission Dx/Problem (Free Text): Admission Diagnosis/Problem Admission Diagnosis/Problem Hypokalemia Functional Status: Reports: Pain Controlled, Tolerating Diet, Ambulating, Urinating. Denies: New Symptoms - Review of Systems General: Reports: Weakness. Denies: Fever, Fatigue, Malaise, Chills HEENT: Reports: No Symptoms. Denies: Headaches, Sore Throat Pulmonary: Reports: No Symptoms. Denies: Shortness of Breath, Cough, Sputum, Wheezing Cardiovascular: Reports: No Symptoms. Denies: Chest Pain, Palpitations, Edema Gastrointestinal: Reports: Abdominal Pain (Epigastric - improved ), Nausea. Denies: Constipation, Diarrhea, Vomiting Genitourinary: Reports: No Symptoms. Denies: Pain Musculoskeletal: Reports: No Symptoms Skin: Reports: No Symptoms. Denies: Cyanosis Neurological: Reports: No Symptoms. Denies: Confusion, Difficulty Walking, Gait Disturbance Psychiatric: Reports: No Symptoms. Denies: Confusion - Patient Data Vitals - Most Recent: Last Vital Signs Temp 98.1 F 01/01/20 04:11 Pulse 104 H 01/01/20 04:11 Resp 16 01/01/20 04:11 BP 154/98 H 01/01/20 04:11 Pulse Ox 100 01/01/20 04:11 Orthostatic Blood Pressure [ 101/74 Standing] Orthostatic Blood Pressure [ 118/87 Supine] Weight - Most Recent: 144 lb 4.8 oz I&O - Last 24 Hours: Intake & Output 12/31/19 01/01/20 01/01/20 22:59 06:59 14:59 Intake Total 2157 Output Total 350 Balance 1807 Lab Results Last 24 Hours: Laboratory Results - last 24 hr 12/31/19 12/31/19 12/31/19 Range/Units 15:40 15:40 15:40 WBC 13.50 H (4.23-9.07) K/mm3 RBC 5.82 (4.63-6.08) M/mm3 Hgb 16.5 D (13.7-17.5) gm/dl Hct 48.1 (40.1-51.0) % MCV 82.6 D (79.0-92.2) fl MCH 28.4 (25.7-32.2) pg MCHC 34.3 (32.2-35.5) g/dl RDW Std Deviation 38.3 (35.1-43.9) fL Plt Count 371 H D (163-337) K/mm3 MPV 11.4 (9.4-12.3) fl Neut % (Auto) 62.3 (34.0-67.9) % Lymph % (Auto) 23.0 (21.8-53.1) % [place] % (Auto) 13.9 H (5.3-12.2) % Eos % (Auto) 0.2 L (0.8-7.0) Baso % (Auto) 0.2 (0.1-1.2) % Neut # (Auto) 8.41 H (1.78-5.38) K/mm3 Lymph # (Auto) 3.11 (1.32-3.57) K/mm3 [place] # (Auto) 1.87 H (0.30-0.82) K/mm3 Eos # (Auto) 0.03 L (0.04-0.54) K/mm3 Baso # (Auto) 0.03 (0.01-0.08) K/mm3 Manual Slide Review Abnormal smear Sodium 133 L (136-145) mEq/L Potassium 2.4 L* D (3.5-5.1) mEq/L Chloride 88 L D (98-107) mEq/L Carbon Dioxide 36 H D (21-32) mEq/L Anion Gap 11.4 (5-15) BUN 21 H (7-18) mg/dL Creatinine 1.4 H (0.7-1.3) mg/dL Est Cr Clr Drug Dosing 70.45 mL/min Estimated GFR (MDRD) 56 (>60) mL/min BUN/Creatinine Ratio 15.0 (14-18) Glucose 111 H (74-106) mg/dL Calcium 9.8 (8.5-10.1) mg/dL Phosphorus 2.9 (2.6-4.7) mg/dL Magnesium 2.0 (1.8-2.4) mg/dl Total Bilirubin 0.6 (0.2-1.0) mg/dL AST 14 L (15-37) U/L ALT 25 (16-63) U/L Alkaline Phosphatase 106 (46-116) U/L C-Reactive Protein 0.2 (<1.0) mg/dL Total Protein 8.6 H (6.4-8.2) g/dl Albumin 3.9 (3.4-5.0) g/dl Globulin 4.7 gm/dL Albumin/Globulin Ratio 0.8 L (1-2) Lipase 316 (73-393) U/L TSH 3rd Generation (0.358-3.74) uIU/mL Urine Color (Yellow) Urine Appearance (Clear) Urine pH (5.0-8.0) Ur Specific [place] (1.005-1.030) Urine Protein (Negative) Urine Glucose (UA) (Negative) Urine Ketones (Negative) Urine Occult Blood (Negative) Urine Nitrite (Negative) Urine Bilirubin (Negative) Urine Urobilinogen (0.2-1.0) Ur Leukocyte Esterase (Negative) Urine RBC (0-5) /hpf Urine WBC (0-5) /hpf Ur Squamous Epith Cells (0-5) /hpf Amorphous Sediment (NOT SEEN) /hpf Urine Bacteria (FEW) /hpf Urine Mucus (FEW) /hpf Urine Opiates Screen (GHLSCQ=534) Ur Buprenorphine Scrn (CUTOFF=10) Ur Oxycodone Screen (KPG8UM=169) Urine Methadone Screen (SNG2TS=938) Ur Propoxyphene Screen (GXXVJP=916) Ur Barbiturates Screen (YYOSSP=420) Ur Tricyclics Screen (YHPHDL=105) Ur Phencyclidine Scrn (CUTOFF=25) Ur Amphetamine Screen (IPKPNU=712) U Methamphetamines Scrn (CZXRNA=760) U Benzodiazepines Scrn (AEYNIZ=074) U Cocaine Metab Screen (PCNXQB=439) U Marijuana (THC) Screen (CUTOFF=50) 12/31/19 12/31/19 01/01/20 Range/Units 20:30 20:30 05:17 WBC 11.44 H (4.23-9.07) K/mm3 RBC 4.80 (4.63-6.08) M/mm3 Hgb 13.6 L D (13.7-17.5) gm/dl Hct 40.7 (40.1-51.0) % MCV 84.8 (79.0-92.2) fl MCH 28.3 (25.7-32.2) pg MCHC 33.4 (32.2-35.5) g/dl RDW Std Deviation 38.4 (35.1-43.9) fL Plt Count 302 (163-337) K/mm3 MPV 11.8 (9.4-12.3) fl Neut % (Auto) 50.7 (34.0-67.9) % Lymph % (Auto) 34.8 (21.8-53.1) % [place] % (Auto) 12.8 H (5.3-12.2) % Eos % (Auto) 1.0 (0.8-7.0) Baso % (Auto) 0.3 (0.1-1.2) % Neut # (Auto) 5.80 H (1.78-5.38) K/mm3 Lymph # (Auto) 3.98 H (1.32-3.57) K/mm3 [place] # (Auto) 1.46 H (0.30-0.82) K/mm3 Eos # (Auto) 0.11 (0.04-0.54) K/mm3 Baso # (Auto) 0.04 (0.01-0.08) K/mm3 Manual Slide Review Sodium (136-145) mEq/L Potassium (3.5-5.1) mEq/L Chloride (98-107) mEq/L Carbon Dioxide (21-32) mEq/L Anion Gap (5-15) BUN (7-18) mg/dL Creatinine (0.7-1.3) mg/dL Est Cr Clr Drug Dosing mL/min Estimated GFR (MDRD) (>60) mL/min BUN/Creatinine Ratio (14-18) Glucose (74-106) mg/dL Calcium (8.5-10.1) mg/dL Phosphorus (2.6-4.7) mg/dL Magnesium (1.8-2.4) mg/dl Total Bilirubin (0.2-1.0) mg/dL AST (15-37) U/L ALT (16-63) U/L Alkaline Phosphatase (46-116) U/L C-Reactive Protein (<1.0) mg/dL Total Protein (6.4-8.2) g/dl Albumin (3.4-5.0) g/dl Globulin gm/dL Albumin/Globulin Ratio (1-2) Lipase (73-393) U/L TSH 3rd Generation (0.358-3.74) uIU/mL Urine Color Yellow (Yellow) Urine Appearance Slt cloudy H (Clear) Urine pH 7.0 (5.0-8.0) Ur Specific [place] 1.020 (1.005-1.030) Urine Protein 2+ H (Negative) Urine Glucose (UA) Negative (Negative) Urine Ketones Negative (Negative) Urine Occult Blood 1+ H (Negative) Urine Nitrite Negative (Negative) Urine Bilirubin Negative (Negative) Urine Urobilinogen 2.0 H (0.2-1.0) Ur Leukocyte Esterase 1+ H (Negative) Urine RBC 20-30 H (0-5) /hpf Urine WBC 50-75 H (0-5) /hpf Ur Squamous Epith Cells 0-5 (0-5) /hpf Amorphous Sediment Few H (NOT SEEN) /hpf Urine Bacteria Moderate H (FEW) /hpf Urine Mucus Few (FEW) /hpf Urine Opiates Screen Negative (HOKZBO=335) Ur Buprenorphine Scrn Negative (CUTOFF=10) Ur Oxycodone Screen Negative (LXQ3MD=250) Urine Methadone Screen Negative (RES9NE=950) Ur Propoxyphene Screen Negative (ZSTPNM=659) Ur Barbiturates Screen Negative (IFTOOR=050) Ur Tricyclics Screen Negative (SBURRM=272) Ur Phencyclidine Scrn Negative (CUTOFF=25) Ur Amphetamine Screen Negative (YWKLTN=502) U Methamphetamines Scrn Negative (GNQCKW=818) U Benzodiazepines Scrn Negative (FJBEPO=528) U Cocaine Metab Screen Negative (QVJOHZ=076) U Marijuana (THC) Screen Negative (CUTOFF=50) 12 Range/Units 05:17 WBC (4.23-9.07) K/mm3 RBC (4.63-6.08) M/mm3 Hgb (13.7-17.5) gm/dl Hct (40.1-51.0) % MCV (79.0-92.2) fl MCH (25.7-32.2) pg MCHC (32.2-35.5) g/dl RDW Std Deviation (35.1-43.9) fL Plt Count (163-337) K/mm3 MPV (9.4-12.3) fl Neut % (Auto) (34.0-67.9) % Lymph % (Auto) (21.8-53.1) % [place] % (Auto) (5.3-12.2) % Eos % (Auto) (0.8-7.0) Baso % (Auto) (0.1-1.2) % Neut # (Auto) (1.78-5.38) K/mm3 Lymph # (Auto) (1.32-3.57) K/mm3 [place] # (Auto) (0.30-0.82) K/mm3 Eos # (Auto) (0.04-0.54) K/mm3 Baso # (Auto) (0.01-0.08) K/mm3 Manual Slide Review Sodium 132 L (136-145) mEq/L Potassium 3.0 L (3.5-5.1) mEq/L Chloride 94 L (98-107) mEq/L Carbon Dioxide 33 H (21-32) mEq/L Anion Gap 8.0 (5-15) BUN 17 (7-18) mg/dL Creatinine 1.1 (0.7-1.3) mg/dL Est Cr Clr Drug Dosing 82.43 mL/min Estimated GFR (MDRD) > 60 (>60) mL/min BUN/Creatinine Ratio 15.5 (14-18) Glucose 119 H (74-106) mg/dL Calcium 8.5 (8.5-10.1) mg/dL Phosphorus (2.6-4.7) mg/dL Magnesium 1.8 (1.8-2.4) mg/dl Total Bilirubin 0.7 (0.2-1.0) mg/dL AST 13 L (15-37) U/L ALT 30 (16-63) U/L Alkaline Phosphatase 82 (46-116) U/L C-Reactive Protein (<1.0) mg/dL Total Protein 6.6 (6.4-8.2) g/dl Albumin 3.0 L (3.4-5.0) g/dl Globulin 3.6 gm/dL Albumin/Globulin Ratio 0.8 L (1-2) Lipase (73-393) U/L TSH 3rd Generation 1.474 (0.358-3.74) uIU/mL Urine Color (Yellow) Urine Appearance (Clear) Urine pH (5.0-8.0) Ur Specific [place] (1.005-1.030) Urine Protein (Negative) Urine Glucose (UA) (Negative) Urine Ketones (Negative) Urine Occult Blood (Negative) Urine Nitrite (Negative) Urine Bilirubin (Negative) Urine Urobilinogen (0.2-1.0) Ur Leukocyte Esterase (Negative) Urine RBC (0-5) /hpf Urine WBC (0-5) /hpf Ur Squamous Epith Cells (0-5) /hpf Amorphous Sediment (NOT SEEN) /hpf Urine Bacteria (FEW) /hpf Urine Mucus (FEW) /hpf Urine Opiates Screen (OQQDCV=512) Ur Buprenorphine Scrn (CUTOFF=10) Ur Oxycodone Screen (YTS6CU=167) Urine Methadone Screen (WKI2BG=291) Ur Propoxyphene Screen (GQKRFF=752) Ur Barbiturates Screen (LROZAK=027) Ur Tricyclics Screen (NSYAVH=476) Ur Phencyclidine Scrn (CUTOFF=25) Ur Amphetamine Screen (UEPJYD=896) U Methamphetamines Scrn (EABMSY=211) U Benzodiazepines Scrn (CLTCJR=499) U Cocaine Metab Screen (DRNHSS=428) U Marijuana (THC) Screen (CUTOFF=50) Med Orders - Current: Current Medications Acetaminophen (Tylenol) 650 mg PO Q4H PRN PRN Reason: Pain (Mild 1-3)/fever Potassium Chloride/Dextrose/Sod Cl (D5 1/2 Ns W/ 20 Meq/L Kcl) 1,000 mls @ 150 mls/hr IV ASDIRECTED FIDELIA Last Admin: 01/01/20 04:12 Dose: 150 mls/hr Ceftriaxone Sodium 1 gm/ (Sodium Chloride) 100 mls @ 200 mls/hr IV Q24H FIDELIA Lorazepam (Ativan) 1 mg IVPUSH Q4H PRN PRN Reason: Anxiety Last Admin: 12/31/19 21:37 Dose: 1 mg Pantoprazole Sodium (Protonix Iv) 40 mg IVPUSH Q12HR FIDELIA Last Admin: 12/31/19 20:29 Dose: 40 mg Prochlorperazine Edisylate (Compazine) 5 mg IVPUSH Q6H PRN PRN Reason: Nausea/Vomiting Last Admin: 12/31/19 21:33 Dose: 5 mg Sodium Chloride (Saline Flush) 10 ml FLUSH ASDIRECTED PRN PRN Reason: Keep Vein Open Last Admin: 12/31/19 15:41 Dose: 10 ml Sucralfate (Carafate) 1 gm PO QIDACANDBED [facility] Last Admin: 01/01/20 06:39 Dose: 1 gm Venlafaxine HCl (Effexor Xr) 37.5 mg PO DAILY [facility] Discontinued Medications Sodium Chloride (Normal Saline) 1,000 mls @ 999 mls/hr IV ASDIRECTED [facility] Last Infusion: 12/31/19 16:41 Dose: Infused Potassium Chloride 10 meq/ (Premix) 100 mls @ 100 mls/hr IV Q1H [facility] Stop: 12/31/19 20:44 Last Admin: 12/31/19 20:28 Dose: 100 mls/hr Sodium Chloride (Normal Saline) 1,000 mls @ 150 mls/hr IV ASDIRECTED [facility] Last Admin: 12/31/19 17:40 Dose: 150 mls/hr Potassium Chloride 10 meq/ (Premix) 100 mls @ 100 mls/hr IV Q1H [facility] Stop: 01/01/20 02:29 Last Admin: 01/01/20 00:55 Dose: 100 mls/hr Promethazine HCl 12.5 mg/ (Sodium Chloride) 50.5 mls @ 100 mls/hr IV Q6H PRN PRN Reason: Nausea/Vomiting Ondansetron HCl (Zofran) 4 mg IVPUSH ONETIME ONE Stop: 12/31/19 15:23 Last Admin: 12/31/19 15:41 Dose: 4 mg Ondansetron HCl (Zofran) 4 mg IVPUSH Q4H PRN PRN Reason: Nausea/Vomiting Trazodone HCl (Trazodone) 75 mg PO BEDTIME [facility] - Exam Quality Assessment: No: DVT Prophylaxis (VTE 0) General: Alert, Oriented, Cooperative, No Acute Distress HEENT: Pupils Equal, Pupils Reactive, Mucous Membr. Moist/[place] Neck: Supple, Trachea Midline Lungs: Clear to Auscultation, Normal Respiratory Effort Cardiovascular: Regular Rate, Regular Rhythm GI/Abdominal Exam: Soft, No Organomegaly, No Distention, Tender (Epigastric area ), Abnormal Bowel Sounds (Hypoactive ) (Male) Exam: Deferred Back Exam: Normal Inspection, Full Range of Motion Extremities: Normal Inspection, Normal Range of Motion, Non-Tender, No Pedal Edema, Normal Capillary Refill Skin: Warm, Dry, Intact Neurological: No New Focal Deficit Psy/Mental Status: Alert, Withdrawal Symptoms (mild ). No: Anxious, Agitated, Hallucinations Sepsis Event Note - Evaluation Sepsis Screening Result: No Definite Risk - Focused Exam Vital Signs: Vital Signs Temp Pulse Resp BP Pulse Ox 01/01/20 04:11 98.1 F 104 H 16 154/98 H 100 01/01/20 01:01 98.6 F 87 16 138/88 99 Date Exam was Performed: 01/01/20 Time Exam was Performed: 10:04 - Problem List & Annotations (1) Hypokalemia SNOMED Code(s): 62823672 Code(s): E87.6 - HYPOKALEMIA Status: Acute Priority: High Current Visit : Yes (2) UTI, Urinary tract infectious disease SNOMED Code(s): 28732976 Code(s): N39.0 - URINARY TRACT INFECTION, SITE NOT SPECIFIED Status: Acute Priority: High Current Visit: Yes (3) Nausea and vomiting SNOMED Code(s): 46904767 Code(s): R11.2 - NAUSEA WITH VOMITING, UNSPECIFIED Status: Acute Priority : High Current Visit: Yes Qualifiers: Vomiting type: unspecified Vomiting Intractability: unspecified Qualified Code(s): R11.2 - Nausea with vomiting, unspecified (4) Opiate withdrawal SNOMED Code(s): 01190145 Code(s): F11.23 - OPIOID DEPENDENCE WITH WITHDRAWAL Status: Acute Priority: High Current Visit: Yes (5) Hyponatremia SNOMED Code(s): 99661553 Code(s): E87.1 - HYPO-OSMOLALITY AND HYPONATREMIA Status: Acute Priority : Medium Current Visit: Yes (6) QT prolongation SNOMED Code(s): 400150843 Code(s): R94.31 - ABNORMAL ELECTROCARDIOGRAM [ECG] [EKG] Status: Acute Priority: High Current Visit: Yes (7) Dehydration SNOMED Code(s): 95941743 Code(s): E86.0 - DEHYDRATION Status: Acute Priority: High Current Visit : Yes (8) ADRIANA (acute kidney injury) SNOMED Code(s): 66274776, 07004838 Code(s): N17.9 - ACUTE KIDNEY FAILURE, UNSPECIFIED Status: Acute Priority : High Current Visit: Yes (9) Opiate abuse, continuous SNOMED Code(s): 7654167 Code(s): F11.10 - OPIOID ABUSE, UNCOMPLICATED Status: Chronic Priority: High Current Visit: Yes (10) Current smoker SNOMED Code(s): 84426984 Code(s): F17.200 - NICOTINE DEPENDENCE, UNSPECIFIED, UNCOMPLICATED Status: Acute Current Visit: Yes - Problem List Review Problem List Initiated/Reviewed/Updated: Yes - My Orders Last 24 Hours: My Active Orders 01/01/20 08:30 cefTRIAXone [Rocephin] 1 gm Sodium Chloride 0.9% [Normal Saline] 100 ml IV Q24H - Plan Plan:: 10-day history of nausea and vomiting secondary to opiate withdrawal Severe hypokalemia - Improved Mild hyponatremia, stable Acquired QT prolongation with a QTC of 533 Dehydration Acute kidney injury Opiate abuse * Until 10 days ago patient was snorting 30 mg of oxycodone 7-8 times per day and drinking kratom. * Patient's vomiting seems to be the worst at night. * Patient was taking Zofran at home * Was seen at [facility] and following with Dr. Tidwell in psychiatry * Approximately 10 years of opiate use and 6 years of kratom use * 10 pound weight loss in 10 days Plan * Observation on telemetry * Potassium replacement * IV fluid resuscitation * Preferably alcohol swabs for nausea but if necessary prochlorperazine 5 mg IV as needed because of the QT prolongation * Protonix 40 mg twice daily * Carafate 1 g 4 times daily * Follow renal function and electrolytes * Get records [facility] * Avoid nephrotoxic medications especially NSAIDs Urinary tract infection * UA positive * Mild leukocytosis Plan * Start Rocephin 1gm * Culture urine * IV fluids as ordered Current smoker Plan * Nicotine patch * Cessation counseling VTE prophylaxis not indicated CODE STATUS: Full code Disposition: Plan observation for 24 to 48 hours and then discharged to home. Likely discharge tomorrow.
[2020-01-01] MEDS: Pantoprazole 40 MG Vial IVPUSH SCH (08:16)
[2020-01-01] MEDS ORDERED: cefTRIAXone 1 GM in Sodium Chloride 0.9% 100 ML IV SCH (08:30)
[2020-01-01] MEDS ORDERED: Venlafaxine 37.5 MG Cap.ER PO SCH (09:00)
[2020-01-01] MEDS ORDERED: Magnesium Oxide 400 MG Tab PO ONE (10:30)
[2020-01-01] MEDS: Nicotine 21 MG/24 Hr Patch TRDERM SCH ×2 (10:31→21:41)
[2020-01-01] MEDS: Pantoprazole 40 MG Tab.CR PO SCH (20:52)
[2020-01-01] MEDS: LORazepam 2 MG/ML SDV IVPUSH PRN (23:14)
[2020-01-02] MEDS: D5 1/2 NS w/ 20 mEq/L KCl 1,000 ML IV SCH ×3 (00:20→14:15)
[2020-01-02] MEDS: LORazepam 2 MG/ML SDV IVPUSH PRN (04:22)
[2020-01-02] MEDS: Sucralfate 1 GM Tab PO SCH ×4 (06:09→21:02)
[2020-01-02] MEDS ORDERED: Magnesium Sulfate/Water 2 GM in Premix Bag 1 BAG IV ONE (07:34)
[2020-01-02] MEDS: Pantoprazole 40 MG Tab.CR PO SCH ×2 (08:24→21:01)
[2020-01-02] MEDS ORDERED: VENLAFAXINE 37.5 MG PO SCH (09:00)
[2020-01-02] MEDS ORDERED: Alum Hydrox/Mag Hydrox/Simeth 30 ML, Lidocaine 2% 15 ML PO ONE ×2 (10:00)
--- NOTE | 2020-01-02 10:15 | PCM.PN ---
- General Info Date of Service: 01/02/20 Admission Dx/Problem (Free Text): Admission Diagnosis/Problem Admission Diagnosis/Problem Hypokalemia Functional Status: Reports: Pain Controlled. Denies: Tolerating Diet (Reports difficulty swallowing ) - Review of Systems General: Reports: Weakness, Fatigue, Malaise. Denies: Fever, Chills HEENT: Denies: Headaches, Sore Throat Pulmonary: Denies: Shortness of Breath, Cough, Sputum, Wheezing Cardiovascular: Denies: Chest Pain, Palpitations, Dyspnea on Exertion, Edema Gastrointestinal: Reports: Abdominal Pain (Epigastric ), Decreased Appetite, Diarrhea, Difficulty Swallowing, Nausea. Denies: Constipation, Hematochezia, Melena, Vomiting Genitourinary: Reports: No Symptoms Musculoskeletal: Reports: No Symptoms Skin: Reports: No Symptoms Neurological: Reports: No Symptoms. Denies: Confusion, Difficulty Walking, Gait Disturbance Psychiatric: Reports: No Symptoms - Patient Data Vitals - Most Recent: Last Vital Signs Temp 98.2 F 01/02/20 02:40 Pulse 75 01/02/20 02:40 Resp 16 01/02/20 02:40 BP 154/100 H 01/02/20 02:40 Pulse Ox 100 01/02/20 02:40 Orthostatic Blood Pressure [ 101/74 Standing] Orthostatic Blood Pressure [ 118/87 Supine] Weight - Most Recent: 144 lb 3.2 oz I&O - Last 24 Hours: Intake & Output 01/01/20 01/02/20 01/02/20 22:59 06:59 14:59 Intake Total 2350 2050 Output Total 60 1100 Balance 2290 950 Lab Results Last 24 Hours: Laboratory Results - last 24 hr 01/02/20 01/02/20 Range/Units 05:42 05:42 WBC 10.96 H (4.23-9.07) K/mm3 RBC 4.61 L (4.63-6.08) M/mm3 Hgb 12.9 L (13.7-17.5) gm/dl Hct 38.8 L (40.1-51.0) % MCV 84.2 (79.0-92.2) fl MCH 28.0 (25.7-32.2) pg MCHC 33.2 (32.2-35.5) g/dl RDW Std Deviation 37.1 (35.1-43.9) fL Plt Count 299 (163-337) K/mm3 MPV 11.4 (9.4-12.3) fl Neut % (Auto) 60.2 (34.0-67.9) % Lymph % (Auto) 24.1 (21.8-53.1) % [place] % (Auto) 12.1 (5.3-12.2) % Eos % (Auto) 2.6 (0.8-7.0) Baso % (Auto) 0.5 (0.1-1.2) % Neut # (Auto) 6.59 H (1.78-5.38) K/mm3 Lymph # (Auto) 2.64 (1.32-3.57) K/mm3 [place] # (Auto) 1.33 H (0.30-0.82) K/mm3 Eos # (Auto) 0.29 (0.04-0.54) K/mm3 Baso # (Auto) 0.05 (0.01-0.08) K/mm3 Sodium 135 L (136-145) mEq/L Potassium 3.1 L (3.5-5.1) mEq/L Chloride 100 (98-107) mEq/L Carbon Dioxide 26 (21-32) mEq/L Anion Gap 12.1 (5-15) BUN 7 (7-18) mg/dL Creatinine 0.9 (0.7-1.3) mg/dL Est Cr Clr Drug Dosing 101.95 mL/min Estimated GFR (MDRD) > 60 (>60) mL/min BUN/Creatinine Ratio 7.8 L (14-18) Glucose 121 H (74-106) mg/dL Calcium 8.6 (8.5-10.1) mg/dL Magnesium 1.7 L (1.8-2.4) mg/dl Rehan Results Last 24 Hours: Microbiology 12/31/19 20:30 Urine Culture - Preliminary Urine, Clean Catch Gram Positive Cocci Med Orders - Current: Current Medications Acetaminophen (Tylenol) 650 mg PO Q4H PRN PRN Reason: Pain (Mild 1-3)/fever Potassium Chloride/Dextrose/Sod Cl (D5 1/2 Ns W/ 20 Meq/L Kcl) 1,000 mls @ 150 mls/hr IV ASDIRECTED FIDELIA Last Admin: 01/02/20 06:09 Dose: 150 mls/hr Ceftriaxone Sodium 1 gm/ (Sodium Chloride) 100 mls @ 200 mls/hr IV Q24H FIDEILA Potassium Chloride 10 meq/ (Premix) 100 mls @ 100 mls/hr IV Q1H [facility], [facility]1983 Stop: 01/02/20 16:29 Lorazepam (Ativan) 1 mg IVPUSH Q4H PRN PRN Reason: Anxiety Last Admin: 01/02/20 04:22 Dose: 1 mg Miscellaneous Information (Remove Patch) 1 ea TRDERM Q24H [facility], [facility]1983 Last Admin: 01/01/20 21:41 Dose: 1 ea Nicotine (Habitrol) 21 mg TRDERM Q24H [facility], [facility] Last Admin: 01/01/20 21:41 Dose: 21 mg Pantoprazole Sodium (Protonix) 40 mg PO BID [facility], [facility] Last Admin: 01/02/20 08:24 Dose: 40 mg Prochlorperazine Edisylate (Compazine) 5 mg IVPUSH Q6H PRN PRN Reason: Nausea/Vomiting Last Admin: 12/31/19 21:33 Dose: 5 mg Sodium Chloride (Saline Flush) 10 ml FLUSH ASDIRECTED PRN PRN Reason: Keep Vein Open Last Admin: 12/31/19 15:41 Dose: 10 ml Sucralfate (Carafate) 1 gm PO QIDACANDBED [facility], [facility]–1983 Last Admin: 01/02/20 06:09 Dose: 1 gm Venlafaxine HCl (Effexor Xr) 37.5 mg PO DAILY [facility], [facility] Last Admin: 01/02/20 08:28 Dose: 37.5 mg Discontinued Medications Al Hydroxide/Mg Hydroxide 30 (ml/ Lidocaine HCl 15 ml) 0 ml PO ONETIME ONE Stop: 01/02/20 10:01 Last Admin: 01/02/20 09:59 Dose: 45 ml Sodium Chloride (Normal Saline) 1,000 mls @ 999 mls/hr IV ASDIRECTED [facility], [facility] Last Infusion: 12/31/19 16:41 Dose: Infused Potassium Chloride 10 meq/ (Premix) 100 mls @ 100 mls/hr IV Q1H [facility]1983 Stop: 12/31/19 20:44 Last Admin: 12/31/19 20:28 Dose: 100 mls/hr Sodium Chloride (Normal Saline) 1,000 mls @ 150 mls/hr IV ASDIRECTED [facility], [facility] Last Admin: 12/31/19 17:40 Dose: 150 mls/hr Potassium Chloride 10 meq/ (Premix) 100 mls @ 100 mls/hr IV Q1H [facility], [facility]1983 Stop: 01/01/20 02:29 Last Admin: 01/01/20 00:55 Dose: 100 mls/hr Promethazine HCl 12.5 mg/ (Sodium Chloride) 50.5 mls @ 100 mls/hr IV Q6H PRN PRN Reason: Nausea/Vomiting Ceftriaxone Sodium 1 gm/ (Sodium Chloride) 100 mls @ 200 mls/hr IV Q24H [facility] Last Admin: 01/01/20 08:42 Dose: 200 mls/hr Potassium Chloride 10 meq/ (Premix) 100 mls @ 100 mls/hr IV Q1H [facility]1983 Stop: 01/01/20 16:29 Last Admin: 01/01/20 16:14 Dose: 100 mls/hr Magnesium Sulfate 2 gm/ Premix 50 mls @ 25 mls/hr IV ONETIME ONE Stop: 01/02/20 09:33 Last Admin: 01/02/20 08:19 Dose: 25 mls/hr Magnesium Oxide (Magnesium Oxide) 400 mg PO ONETIME ONE Stop: 01/01/20 10:31 Last Admin: 01/01/20 10:30 Dose: 400 mg Ondansetron HCl (Zofran) 4 mg IVPUSH ONETIME ONE Stop: 12/31/19 15:23 Last Admin: 12/31/19 15:41 Dose: 4 mg Ondansetron HCl (Zofran) 4 mg IVPUSH Q4H PRN PRN Reason: Nausea/Vomiting Pantoprazole Sodium (Protonix Iv) 40 mg IVPUSH Q12HR [facility] Last Admin: 01/01/20 08:16 Dose: 40 mg Trazodone HCl (Trazodone) 75 mg PO BEDTIME [facility] Venlafaxine HCl (Effexor Xr) 37.5 mg PO DAILY [facility] Last Admin: 01/01/20 08:15 Dose: 37.5 mg - Exam Quality Assessment: DVT Prophylaxis General: Alert, Oriented, Cooperative, No Acute Distress HEENT: Pupils Equal, Pupils Reactive, Mucous Membr. Moist/[place] Neck: Supple, Trachea Midline Lungs: Clear to Auscultation, Normal Respiratory Effort Cardiovascular: Regular Rate, Regular Rhythm GI/Abdominal Exam: Normal Bowel Sounds, Soft, No Distention, No Abnormal Bruit, Tender (Epigastric region ) (Male) Exam: Deferred Back Exam: Normal Inspection, Full Range of Motion Extremities: Normal Inspection, Normal Range of Motion, Non-Tender, No Pedal Edema, Normal Capillary Refill Skin: Warm, Dry, Intact Neurological: No New Focal Deficit Psy/Mental Status: Alert, Normal Affect, Normal Mood Sepsis Event Note - Evaluation Sepsis Screening Result: No Definite Risk - Focused Exam Vital Signs: Vital Signs Temp Pulse Resp BP Pulse Ox 01/02/20 02:40 98.2 F 75 16 154/100 H 100 01/02/20 00:00 16 01/01/20 23:09 98.1 F 87 138/100 H 100 Date Exam was Performed: 01/02/20 Time Exam was Performed: 10:55 - Problem List & Annotations (1) Hypokalemia SNOMED Code(s): 97068104 Code(s): E87.6 - HYPOKALEMIA Status: Acute Priority: High Current Visit : Yes (2) UTI, Urinary tract infectious disease SNOMED Code(s): 84476438 Code(s): N39.0 - URINARY TRACT INFECTION, SITE NOT SPECIFIED Status: Acute Priority: High Current Visit: Yes (3) Nausea and vomiting SNOMED Code(s): 88337481 Code(s): R11.2 - NAUSEA WITH VOMITING, UNSPECIFIED Status: Acute Priority : High Current Visit: Yes Qualifiers: Vomiting type: unspecified Vomiting Intractability: unspecified Qualified Code(s): R11.2 - Nausea with vomiting, unspecified (4) Opiate withdrawal SNOMED Code(s): 81687555 Code(s): F11.23 - OPIOID DEPENDENCE WITH WITHDRAWAL Status: Acute Priority: High Current Visit: Yes (5) Hyponatremia SNOMED Code(s): 17323316 Code(s): E87.1 - HYPO-OSMOLALITY AND HYPONATREMIA Status: Acute Priority : Medium Current Visit: Yes (6) QT prolongation SNOMED Code(s): 009175936 Code(s): R94.31 - ABNORMAL ELECTROCARDIOGRAM [ECG] [EKG] Status: Acute Priority: High Current Visit: Yes (7) Dehydration SNOMED Code(s): 45055728 Code(s): E86.0 - DEHYDRATION Status: Acute Priority: High Current Visit : Yes (8) ADRIANA (acute kidney injury) SNOMED Code(s): 36000386, 72449879 Code(s): N17.9 - ACUTE KIDNEY FAILURE, UNSPECIFIED Status: Acute Priority : High Current Visit: Yes (9) Opiate abuse, continuous SNOMED Code(s): 3170249 Code(s): F11.10 - OPIOID ABUSE, UNCOMPLICATED Status: Chronic Priority: High Current Visit: Yes (10) Current smoker SNOMED Code(s): 22196288 Code(s): F17.200 - NICOTINE DEPENDENCE, UNSPECIFIED, UNCOMPLICATED Status: Acute Current Visit: Yes (11) Epigastric abdominal pain SNOMED Code(s): 02700581 Code(s): R10.13 - EPIGASTRIC PAIN Status: Acute Priority: High Current Visit: Yes - Problem List Review Problem List Initiated/Reviewed/Updated: Yes - My Orders Last 24 Hours: My Active Orders 01/01/20 10:00 Nicotine [Habitrol] 21 mg TRDERM Q24H 01/01/20 21:00 Pantoprazole [ProTONIX] 40 mg PO BID 01/02/20 09:46 Patient Status [ADT] Routine 01/02/20 10:00 Remove Patch 1 ea TRDERM Q24H 01/02/20 10:30 Potassium Chloride [KCl 10 MEQ in Water 100 ML] 10 meq Premix Bag 1 bag IV Q1H cefTRIAXone [Rocephin] 1 gm Sodium Chloride 0.9% [Normal Saline] 100 ml IV Q24H 01/03/20 05:11 BASIC METABOLIC PANEL,BMP [CHEM] AM CBC WITH AUTO DIFF [HEME] AM MAGNESIUM [CHEM] AM 01/04/20 05:11 BASIC METABOLIC PANEL,BMP [CHEM] AM CBC WITH AUTO DIFF [HEME] AM MAGNESIUM [CHEM] AM 01/05/20 05:11 BASIC METABOLIC PANEL,BMP [CHEM] AM CBC WITH AUTO DIFF [HEME] AM MAGNESIUM [CHEM] AM - Plan Plan:: 10-day history of nausea and vomiting secondary to opiate withdrawal Severe hypokalemia - Improved Mild hyponatremia, stable Acquired QT prolongation with a QTC of 533 Dehydration Acute kidney injury Epigastric abcominal pain Opiate abuse * Until 10 days ago patient was snorting 30 mg of oxycodone 7-8 times per day and drinking kratom. * Patient's vomiting seems to be the worst at night. * Patient was taking Zofran at home * Was seen at [facility] and following with Dr. Tidwell in psychiatry * Approximately 10 years of opiate use and 6 years of kratom use * 10 pound weight loss in 10 days * Given GI cocktail with brief improvement of symptoms Plan * Observation on telemetry * Potassium replacement * IV fluid resuscitation * Preferably alcohol swabs for nausea but if necessary prochlorperazine 5 mg IV as needed because of the QT prolongation * Protonix 40 mg twice daily * Carafate 1 g 4 times daily * Follow renal function and electrolytes * Get records from [facility] * Avoid nephrotoxic medications especially NSAIDs * Consult GS - Dr. Geller; Likely EGD tomorrow (01/03/20) Urinary tract infection * UA positive * Mild leukocytosis * Gram positive cocci on curine culture Plan * Start Rocephin 1gm * Culture urine * IV fluids as ordered Current smoker Plan * Nicotine patch * Cessation counseling VTE prophylaxis not indicated CODE STATUS: Full code Disposition: Upgraded to inpatient due to difficulty swallowing, continued hypokalemia, nausea, and epigastric pain.
[2020-01-02] MEDS: cefTRIAXone 1 GM in Sodium Chloride 0.9% 100 ML IV SCH ×3 (10:30→11:28)
[2020-01-02] MEDS: Nicotine 21 MG/24 Hr Patch TRDERM SCH (10:50)
[2020-01-02] MEDS: Potassium Chloride 10 MEQ in Premix Bag 1 BAG IV SCH ×6 (11:23→16:33)
[2020-01-02] MEDS: Acetaminophen 325 MG Tab PO PRN (14:25)
--- NOTE | 2020-01-02 17:58 | PCM.CONS ---
H&P History of Present Illness - General Date of Service: 01/02/20 Admit Problem/Dx: Admission Diagnosis/Problem Admission Diagnosis/Problem Hypokalemia Source of Information: Patient History Limitations: Reports: No Limitations - History of Present Illness Duration of Symptoms: Reports: Week(s):, Improving Other HPI/Comments: Mr. Arceo is a 39 yo man admitted to the medicine service from the emergency department two days ago with nausea, vomiting and abdominal pain following abrupt cessation of long-time opioid abuse. Due to reported symptoms of ongoing dysphagia and epigastric pain despite treatment with PPI and sucralfate, general surgery is consulted for assessment and possible diagnostic endoscopy. At the time of evaluation, the patient is in no distress, eating a full dinner without any issues. He reports his symptoms are improving. He has only had such symptoms for the past several days. He denies history of reflux, heartburn, or peptic ulcer disease. He denies any recent emesis. Abdomen Pain Score (Numeric/FACES): 4 - Related Data Allergies/Adverse Reactions: Allergies Allergy/AdvReac Type Severity Reaction Status Date / Time No Known Allergies Allergy Verified 12/22/18 17:46 Home Medications: Home Meds Ondansetron [Zofran ODT] 4 mg PO Q4HR PRN 12/31/19 [History] Venlafaxine HCl [Venlafaxine ER] 37.5 mg PO DAILY 12/31/19 [History] traZODone HCl [Trazodone HCl] 75 mg PO BEDTIME 12/31/19 [History] Past Medical History HEENT History: Reports: None Cardiovascular History: Reports: None Respiratory History: Reports: None Gastrointestinal History: Reports: None Other Gastrointestinal History: nausea Genitourinary History: Reports: Pyelonephritis, Renal Calculus Other Genitourinary History: Kidney Stones, Left Sponge Kidney Musculoskeletal History: Reports: None Neurological History: Reports: None Psychiatric History: Reports: Addiction, Anxiety, PTSD Other Psychiatric History: addiction to oxycodone 30. Just stopped taking on December 28, 2019. Endocrine/Metabolic History: Reports: None Immunologic History: Reports: None Oncologic (Cancer) History: Reports: None Dermatologic History: Reports: None - Infectious Disease History Infectious Disease History: Reports: None - Past Surgical History Head Surgeries/Procedures: Reports: None HEENT Surgical History: Reports: None Cardiovascular Surgical History: Reports: None Male Surgical History: Reports: Lithotripsy ([facility]) Neurological Surgical History: Reports: None Social & Family History - Family History Family Medical History: Noncontributory GI: Reports: None : Reports: Renal Calculus Endocrine/Metabolic: Reports: Diabetes, type II - Tobacco Use Smoking Status *Q: Current Every Day Smoker Years of Tobacco use: 20 Packs/Tins Daily: 10 Used Tobacco, but Quit: No Second Hand Smoke Exposure: No - Caffeine Use Caffeine Use: Reports: Coffee - Recreational Drug Use Recreational Drug Use: Yes Drug Use in Last 12 Months: Yes Recreational Drug Type: Reports: Oxycodone, Other (see below) Other Recreational Drug Type: KRATOM - Living Situation & Occupation Living situation: Reports: Single Occupation: Employed H&P Review of Systems - Review of Systems: Review Of Systems: See Below General: Reports: Malaise, Fatigue HEENT: Reports: No Symptoms Pulmonary: Reports: No Symptoms Cardiovascular: Reports: No Symptoms Gastrointestinal: Reports: Abdominal Pain, Diarrhea, Nausea Musculoskeletal: Reports: Back Pain Skin: Reports: No Symptoms Exam - Exam Exam: See Below - Vital Signs Vital Signs: Last Vital Signs Temp 36.8 C 01/02/20 02:40 Pulse 75 01/02/20 02:40 Resp 16 01/02/20 02:40 BP 154/100 H 01/02/20 02:40 Pulse Ox 100 01/02/20 02:40 Orthostatic Blood Pressure [ 101/74 Standing] Orthostatic Blood Pressure [ 118/87 Supine] Weight: 65.408 kg - Exam General: Alert, Oriented, Cooperative HEENT: Conjunctiva Clear Neck: Supple Lungs: Normal Respiratory Effort GI/Abdominal Exam: Soft, Other (no distention or mass. Mild epigastric tenderness on palpation. ) Extremities: Normal Inspection Skin: Warm, Dry Psychiatric: Normal Mood - Patient Data Lab Results Last 24 hrs: Laboratory Results - last 24 hr 01/02/20 01/02/20 Range/Units 05:42 05:42 WBC 10.96 H (4.23-9.07) K/mm3 RBC 4.61 L (4.63-6.08) M/mm3 Hgb 12.9 L (13.7-17.5) gm/dl Hct 38.8 L (40.1-51.0) % MCV 84.2 (79.0-92.2) fl MCH 28.0 (25.7-32.2) pg MCHC 33.2 (32.2-35.5) g/dl RDW Std Deviation 37.1 (35.1-43.9) fL Plt Count 299 (163-337) K/mm3 MPV 11.4 (9.4-12.3) fl Neut % (Auto) 60.2 (34.0-67.9) % Lymph % (Auto) 24.1 (21.8-53.1) % [place] % (Auto) 12.1 (5.3-12.2) % Eos % (Auto) 2.6 (0.8-7.0) Baso % (Auto) 0.5 (0.1-1.2) % Neut # (Auto) 6.59 H (1.78-5.38) K/mm3 Lymph # (Auto) 2.64 (1.32-3.57) K/mm3 [place] # (Auto) 1.33 H (0.30-0.82) K/mm3 Eos # (Auto) 0.29 (0.04-0.54) K/mm3 Baso # (Auto) 0.05 (0.01-0.08) K/mm3 Sodium 135 L (136-145) mEq/L Potassium 3.1 L (3.5-5.1) mEq/L Chloride 100 (98-107) mEq/L Carbon Dioxide 26 (21-32) mEq/L Anion Gap 12.1 (5-15) BUN 7 (7-18) mg/dL Creatinine 0.9 (0.7-1.3) mg/dL Est Cr Clr Drug Dosing 101.95 mL/min Estimated GFR (MDRD) > 60 (>60) mL/min BUN/Creatinine Ratio 7.8 L (14-18) Glucose 121 H (74-106) mg/dL Calcium 8.6 (8.5-10.1) mg/dL Magnesium 1.7 L (1.8-2.4) mg/dl Result Diagrams: 01/02/20 05:42 01/02/20 05:42 Rehan Results Last 24 hrs: Microbiology 12/31/19 20:30 Urine Culture - Preliminary Urine, Clean Catch Gram Positive Cocci Sepsis Event Note - Evaluation Sepsis Screening Result: No Definite Risk *Q Meaningful Use (ADM) - VTE Risk Assess *Q Each Risk Factor Represents 1 Point: None Total Score 1 Point Risk Factors: 0 Consult PN Assessment/Plan Procedures: Procedures ASSAY OF LIPASE (12/04/18) COMPLETE CBC W/AUTO DIFF WBC (12/04/18) COMPREHEN METABOLIC PANEL (12/04/18) CT ABD & PELVIS W/O CONTRAST (12/22/18) EMERGENCY DEPT VISIT (12/22/18) HYDRATE IV INFUSION ADD-ON (12/04/18) METABOLIC PANEL TOTAL CA (03/11/15) ROUTINE VENIPUNCTURE (12/04/18) THER/PROPH/DIAG INJ IV PUSH (12/04/18) THER/PROPH/DIAG INJ SC/IM (12/22/18) TX/PRO/DX INJ NEW DRUG ADDON (12/04/18) TX/PRO/DX INJ SAME DRUG WEDDING DAY COORDINATOR (12/04/18) URINALYSIS AUTO W/SCOPE (12/04/18) URINE CULTURE/COLONY COUNT (12/04/18) X-RAY EXAM OF ABDOMEN (03/11/15) X-RAY EXAM OF PELVIS (12/21/17) Problem List Initiated/Reviewed/Updated: Yes Plan: Vague generalized pain and discomfort, tolerating regular diet now and denies dysphagia. Still with mild nausea and pain, which can be attributed to opioid withdrawal. Symptoms are improving. No acute surgical needs identified. I recommend continuing PPI treatment for one month. If the patient does not have resolution of his symptoms by then, he may follow up in the surgery clinic for re-evaluation and discussion of diagnostic upper endoscopy.
[2020-01-02] MEDS ORDERED: traZODone 50 MG Tab PO ONE (21:30)
[2020-01-03] MEDS: LORazepam 2 MG/ML SDV IVPUSH PRN ×2 (00:43→21:11)
[2020-01-03] MEDS: D5 1/2 NS w/ 20 mEq/L KCl 1,000 ML IV SCH (02:52)
[2020-01-03] MEDS: Sucralfate 1 GM Tab PO SCH ×4 (07:03→21:00)
[2020-01-03] MEDS: Nicotine 21 MG/24 Hr Patch TRDERM SCH (09:00)
[2020-01-03] MEDS: Pantoprazole 40 MG Tab.CR PO SCH ×2 (09:00→20:56)
[2020-01-03] MEDS: Venlafaxine 37.5 MG Cap.ER PO SCH (09:00)
--- NOTE | 2020-01-03 09:42 | PCM.PN ---
- General Info Date of Service: 01/03/20 Admission Dx/Problem (Free Text): Admission Diagnosis/Problem Admission Diagnosis/Problem Hypokalemia Subjective Update: Patient states that he is feeling better. His urine culture is growing out gram -positive cocci. He complains of some epigastric discomfort still. He continues to have some loose stools but nothing severe. - Review of Systems General: Reports: No Symptoms HEENT: Reports: No Symptoms Pulmonary: Reports: No Symptoms Cardiovascular: Reports: No Symptoms Gastrointestinal: Reports: Abdominal Pain, Diarrhea Musculoskeletal: Reports: No Symptoms - Patient Data Vitals - Most Recent: Last Vital Signs Temp 98.2 F 01/03/20 09:05 Pulse 78 01/03/20 09:05 Resp 18 01/03/20 09:05 BP 150/92 H 01/03/20 09:05 Pulse Ox 99 01/03/20 09:05 Orthostatic Blood Pressure [ 101/74 Standing] Orthostatic Blood Pressure [ 118/87 Supine] Weight - Most Recent: 148 lb 2 oz I&O - Last 24 Hours: Intake & Output 01/02/20 01/03/20 01/03/20 22:59 06:59 14:59 Intake Total 2997 1075 Output Total 3170 Balance -173 1075 Lab Results Last 24 Hours: Laboratory Results - last 24 hr 01/03/20 01/03/20 Range/Units 05:21 05:21 WBC 12.47 H (4.23-9.07) K/mm3 RBC 4.72 (4.63-6.08) M/mm3 Hgb 13.4 L (13.7-17.5) gm/dl Hct 39.8 L (40.1-51.0) % MCV 84.3 (79.0-92.2) fl MCH 28.4 (25.7-32.2) pg MCHC 33.7 (32.2-35.5) g/dl RDW Std Deviation 37.7 (35.1-43.9) fL Plt Count 335 (163-337) K/mm3 MPV 11.2 (9.4-12.3) fl Neut % (Auto) 57.7 (34.0-67.9) % Lymph % (Auto) 27.3 (21.8-53.1) % [place] % (Auto) 10.3 (5.3-12.2) % Eos % (Auto) 3.9 (0.8-7.0) Baso % (Auto) 0.3 (0.1-1.2) % Neut # (Auto) 7.19 H (1.78-5.38) K/mm3 Lymph # (Auto) 3.41 (1.32-3.57) K/mm3 [place] # (Auto) 1.28 H (0.30-0.82) K/mm3 Eos # (Auto) 0.49 (0.04-0.54) K/mm3 Baso # (Auto) 0.04 (0.01-0.08) K/mm3 Sodium 136 (136-145) mEq/L Potassium 3.8 (3.5-5.1) mEq/L Chloride 101 (98-107) mEq/L Carbon Dioxide 25 (21-32) mEq/L Anion Gap 13.8 (5-15) BUN 8 (7-18) mg/dL Creatinine 0.9 (0.7-1.3) mg/dL Est Cr Clr Drug Dosing 101.95 mL/min Estimated GFR (MDRD) > 60 (>60) mL/min BUN/Creatinine Ratio 8.9 L (14-18) Glucose 110 H (74-106) mg/dL Calcium 8.7 (8.5-10.1) mg/dL Magnesium 1.9 (1.8-2.4) mg/dl Rehan Results Last 24 Hours: Microbiology 12/31/19 20:30 Urine Culture - Preliminary Urine, Clean Catch Gram Positive Cocci Med Orders - Current: Current Medications Acetaminophen (Tylenol) 650 mg PO Q4H PRN PRN Reason: Pain (Mild 1-3)/fever Last Admin: 01/02/20 14:25 Dose: 650 mg Ceftriaxone Sodium 1 gm/ (Sodium Chloride) 100 mls @ 200 mls/hr IV Q24H FIDELIA Last Admin: 01/02/20 10:30 Dose: 200 mls/hr Lorazepam (Ativan) 1 mg IVPUSH Q4H PRN PRN Reason: Anxiety Last Admin: 01/03/20 00:43 Dose: 1 mg Miscellaneous Information (Remove Patch) 1 ea TRDERM BEDTIME FIDELIA Last Admin: 01/03/20 00:45 Dose: 1 ea Nicotine (Habitrol) 21 mg TRDERM Q24H FIDELIA Last Admin: 01/03/20 09:00 Dose: 21 mg Pantoprazole Sodium (Protonix) 40 mg PO BID [facility] Last Admin: 01/03/20 09:00 Dose: 40 mg Prochlorperazine Edisylate (Compazine) 5 mg IVPUSH Q6H PRN PRN Reason: Nausea/Vomiting Last Admin: 12/31/19 21:33 Dose: 5 mg Sodium Chloride (Saline Flush) 10 ml FLUSH ASDIRECTED PRN PRN Reason: Keep Vein Open Last Admin: 12/31/19 15:41 Dose: 10 ml Sucralfate (Carafate) 1 gm PO QIDACANDBED [facility] Last Admin: 01/03/20 07:03 Dose: 1 gm Venlafaxine HCl (Effexor Xr) 37.5 mg PO DAILY [facility] Last Admin: 01/03/20 09:00 Dose: 37.5 mg Discontinued Medications Al Hydroxide/Mg Hydroxide 30 (ml/ Lidocaine HCl 15 ml) 0 ml PO ONETIME ONE Stop: 01/02/20 10:01 Last Admin: 01/02/20 09:59 Dose: 45 ml Sodium Chloride (Normal Saline) 1,000 mls @ 999 mls/hr IV ASDIRECTED [facility] Last Infusion: 12/31/19 16:41 Dose: Infused Potassium Chloride 10 meq/ (Premix) 100 mls @ 100 mls/hr IV Q1H [facility] Stop: 12/31/19 20:44 Last Admin: 12/31/19 20:28 Dose: 100 mls/hr Sodium Chloride (Normal Saline) 1,000 mls @ 150 mls/hr IV ASDIRECTED [facility] Last Admin: 12/31/19 17:40 Dose: 150 mls/hr Potassium Chloride 10 meq/ (Premix) 100 mls @ 100 mls/hr IV Q1H [facility] Stop: 01/01/20 02:29 Last Admin: 01/01/20 00:55 Dose: 100 mls/hr Potassium Chloride/Dextrose/Sod Cl (D5 1/2 Ns W/ 20 Meq/L Kcl) 1,000 mls @ 150 mls/hr IV ASDIRECTED [facility] Last Admin: 01/02/20 06:09 Dose: 150 mls/hr Promethazine HCl 12.5 mg/ (Sodium Chloride) 50.5 mls @ 100 mls/hr IV Q6H PRN PRN Reason: Nausea/Vomiting Ceftriaxone Sodium 1 gm/ (Sodium Chloride) 100 mls @ 200 mls/hr IV Q24H [facility] Last Admin: 01/01/20 08:42 Dose: 200 mls/hr Potassium Chloride 10 meq/ (Premix) 100 mls @ 100 mls/hr IV Q1H [facility] Stop: 01/01/20 16:29 Last Admin: 01/01/20 16:14 Dose: 100 mls/hr Magnesium Sulfate 2 gm/ Premix 50 mls @ 25 mls/hr IV ONETIME ONE Stop: 01/02/20 09:33 Last Admin: 01/02/20 08:19 Dose: 25 mls/hr Ceftriaxone Sodium 1 gm/ (Sodium Chloride) 100 mls @ 200 mls/hr IV Q24H [facility] Last Admin: 01/02/20 11:28 Dose: Not Given Potassium Chloride 10 meq/ (Premix) 100 mls @ 100 mls/hr IV Q1H [facility] Stop: 01/02/20 16:29 Last Admin: 01/02/20 16:33 Dose: 100 mls/hr Potassium Chloride/Dextrose/Sod Cl (D5 1/2 Ns W/ 20 Meq/L Kcl) 1,000 mls @ 75 mls/hr IV ASDIRECTED [facility] Last Admin: 01/03/20 02:52 Dose: 75 mls/hr Magnesium Oxide (Magnesium Oxide) 400 mg PO ONETIME ONE Stop: 01/01/20 10:31 Last Admin: 01/01/20 10:30 Dose: 400 mg Miscellaneous Information (Remove Patch) 1 ea TRDERM Q24H [facility] Last Admin: 01/02/20 10:51 Dose: 1 ea Nicotine (Habitrol) 21 mg TRDERM Q24H [facility] Last Admin: 01/02/20 10:50 Dose: 21 mg Ondansetron HCl (Zofran) 4 mg IVPUSH ONETIME ONE Stop: 12/31/19 15:23 Last Admin: 12/31/19 15:41 Dose: 4 mg Ondansetron HCl (Zofran) 4 mg IVPUSH Q4H PRN PRN Reason: Nausea/Vomiting Pantoprazole Sodium (Protonix Iv) 40 mg IVPUSH Q12HR [facility] Last Admin: 01/01/20 08:16 Dose: 40 mg Trazodone HCl (Trazodone) 75 mg PO BEDTIME [facility] Trazodone HCl (Trazodone) 50 mg PO ONETIME ONE Stop: 01/02/20 21:31 Last Admin: 01/02/20 21:01 Dose: 50 mg Venlafaxine HCl (Effexor Xr) 37.5 mg PO DAILY [facility] Last Admin: 01/01/20 08:15 Dose: 37.5 mg Venlafaxine HCl (Effexor Xr) 37.5 mg PO DAILY [facility] Last Admin: 01/02/20 08:28 Dose: 37.5 mg - Exam Quality Assessment: No: Supplemental Oxygen General: Alert, Oriented HEENT: Pupils Equal, Mucous Membr. Moist/[place] Neck: Supple Lungs: Clear to Auscultation, Normal Respiratory Effort Cardiovascular: Regular Rate, Regular Rhythm GI/Abdominal Exam: Normal Bowel Sounds, Soft, Non-Tender, No Distention Extremities: Normal Inspection, Normal Range of Motion, Non-Tender, No Pedal Edema, Normal Capillary Refill Skin: Warm, Dry, Intact Neurological: No New Focal Deficit Psy/Mental Status: Alert, Normal Affect, Normal Mood EKG INTERPRETATION EKG Date: 01/02/20 Time: 20:15 Rhythm: NSR Rate (Beats/Min): 85 [place]: LAD-Left [place] Deviation P-Wave: Present QRS: Normal ST-T: Other (Early repolarization) QT: Normal (QTc 451) Comparison: Change From Previous EKG EKG Interpretation Comments: Unlikely left ventricular hypertrophy. Deep S wave in V2 and R wave in V5 likely secondary to thin chest wall Sepsis Event Note - Evaluation Sepsis Screening Result: No Definite Risk - Focused Exam Vital Signs: Vital Signs Temp Pulse Resp BP Pulse Ox 01/03/20 09:05 98.2 F 78 18 150/92 H 99 01/03/20 04:54 98.2 F 88 16 142/98 H 99 01/03/20 00:47 98.6 F 86 18 151/98 H 99 Date Exam was Performed: 01/03/20 Time Exam was Performed: 10:25 - Problem List Review Problem List Initiated/Reviewed/Updated: Yes - My Orders Last 24 Hours: My Active Orders 01/03/20 08:49 Convert IV to Saline Lock [OM.PC] Routine 01/03/20 09:00 Venlafaxine [Effexor XR] 37.5 mg PO DAILY 01/03/20 09:17 Patient Status [ADT] Routine - Plan Plan:: 10-day history of nausea and vomiting secondary to opiate withdrawal Severe hypokalemia -resolved Mild hyponatremia, stable Acquired QT prolongation with a QTC of 533 -resolved QTc 451 Dehydration -resolved Acute kidney injury -resolved Epigastric abdominal pain Opiate abuse * Until 10 days prior to admission patient was snorting 30 mg of oxycodone 7-8 times per day and drinking kratom. * Patient's vomiting seems to be the worst at night, but has resolved since hospitalization * Patient was taking Zofran at home * Was seen at [facility] and following with Dr. Tidwell in psychiatry * Approximately 10 years of opiate use and 6 years of kratom use * 10 pound weight loss in 10 days prior to admission * Given GI cocktail with brief improvement of symptoms * Potassium this morning 3.8 * Seen by Dr. Geller in surgery who recommended continuing a PPI for 1 month. If he continues to have symptoms then to follow-up with general surgery. Plan * DC telemetry * DC IV fluid * Preferably alcohol swabs for nausea but if necessary prochlorperazine 5 mg IV as needed * Protonix 40 mg twice daily * Carafate 1 g 4 times daily * Follow renal function and electrolytes * Get records from [facility] * Avoid nephrotoxic medications especially NSAIDs Urinary tract infection * UA positive * Mild leukocytosis * Gram positive cocci on curine culture Plan * Start Rocephin 1gm * Culture urine * IV fluids as ordered Current smoker Plan * Nicotine patch * Cessation counseling VTE prophylaxis not indicated CODE STATUS: Full code Disposition: Upgraded to inpatient due to difficulty swallowing, continued hypokalemia, nausea, and epigastric pain. Discharge patient when urine culture is available.
[2020-01-03] MEDS: cefTRIAXone 1 GM in Sodium Chloride 0.9% 100 ML IV SCH (10:42)
[2020-01-04 03:17] VITALS: PULSE 88
[2020-01-04] MEDS: LORazepam 2 MG/ML SDV IVPUSH PRN (04:19)
[2020-01-04] MEDS: Sucralfate 1 GM Tab PO SCH ×2 (06:40→11:35)
[2020-01-04] MEDS ORDERED: LORazepam 1 MG Tab PO PRN (07:33)
[2020-01-04] MEDS: Pantoprazole 40 MG Tab.CR PO SCH (09:46)
[2020-01-04] MEDS: Venlafaxine 37.5 MG Cap.ER PO SCH (09:46)
[2020-01-04] MEDS: Nicotine 21 MG/24 Hr Patch TRDERM SCH (09:46)
[2020-01-04 10:53] VITALS: BP 150/98
[2020-01-04] MEDS: Acetaminophen 325 MG Tab PO PRN (11:35)
--- NOTE | 2020-01-04 13:00 | PCM.DCSUM1 ---
Discharge Summary - Hospital Course HPI Initial Comments: 39-year-old male with history of narcotic abuse presents to the emergency department with over a one-week history of nausea and vomiting. Patient states that on December 20 he stopped using oxycodone and kratom. He was admitted to [facility] on December 21- and discharged on the . Patient was having continued difficulty with stopping oxycodone and kratom so he did use some over the next 4 days. Patient has not used any in the last 5 days. Patient has been abusing narcotics for approximately 10 years. Prior to December 20 he was snorting oxycodone 30 mg 7-8 times a day. He started kratom approximately 6 years ago. He was working with Dr. Tidwell in psychiatry while at the [facility]. During the day he continues to have nausea and some mild vomiting but it worsened significantly at night. He has become more weak and fatigued. Patient denies any hematemesis or coffee-ground emesis. He states that it is mostly green. He denies any change in bowel movements and no hematochezia or melena. Last bowel movement was this morning which was a small hard bowel movement. In the emergency room he was found to have a leukocytosis with WBC of 13.5, hyponatremia with sodium of 133, severe hypokalemia with potassium of 2.4, and acute kidney injury with a BUN of 21, creatinine of 1.4, and estimated GFR of 56. Liver enzymes, liver function, and lipase was normal. Diagnosis: Stroke: No - Discharge Data Discharge Date: 01/04/20 (Admit date: 12/31/19) Discharge Disposition: Home, Self-Care 01 Condition: Good - Referral to Home Health Primary Care Physician: PCP None - Discharge Diagnosis/Problem(s) (1) Hypokalemia SNOMED Code(s): 63677363 ICD Code: E87.6 - HYPOKALEMIA Status: Resolved Priority: High Current Visit: Yes (2) UTI, Urinary tract infectious disease SNOMED Code(s): 04809012 ICD Code: N39.0 - URINARY TRACT INFECTION, SITE NOT SPECIFIED Status: Acute Priority: High Current Visit: Yes (3) Nausea and vomiting SNOMED Code(s): 82897531 ICD Code: R11.2 - NAUSEA WITH VOMITING, UNSPECIFIED Status: Resolved Priority: High Current Visit: Yes Qualifiers: Vomiting type: unspecified Vomiting Intractability: unspecified Qualified Code(s): R11.2 - Nausea with vomiting, unspecified (4) Opiate withdrawal SNOMED Code(s): 04781306 ICD Code: F11.23 - OPIOID DEPENDENCE WITH WITHDRAWAL Status: Acute Priority: High Current Visit: Yes (5) Hyponatremia SNOMED Code(s): 62571130 ICD Code: E87.1 - HYPO-OSMOLALITY AND HYPONATREMIA Status: Resolved Priority: Medium Current Visit: Yes (6) QT prolongation SNOMED Code(s): 449631136 ICD Code: R94.31 - ABNORMAL ELECTROCARDIOGRAM [ECG] [EKG] Status: Acute Priority: High Current Visit: Yes (7) Dehydration SNOMED Code(s): 81619392 ICD Code: E86.0 - DEHYDRATION Status: Resolved Priority: High Current Visit: Yes (8) ADRIANA (acute kidney injury) SNOMED Code(s): 67760676, 76920668 ICD Code: N17.9 - ACUTE KIDNEY FAILURE, UNSPECIFIED Status: Resolved Priority: High Current Visit: Yes (9) Opiate abuse, continuous SNOMED Code(s): 8841084 ICD Code: F11.10 - OPIOID ABUSE, UNCOMPLICATED Status: Resolved Priority : High Current Visit: Yes (10) Epigastric abdominal pain SNOMED Code(s): 96865076 ICD Code: R10.13 - EPIGASTRIC PAIN Status: Resolved Priority: High Current Visit: Yes (11) Chewing tobacco use SNOMED Code(s): 30436028 ICD Code: Z72.0 - TOBACCO USE Status: Acute Priority: High Current Visit: Yes - Patient Summary/Data Consults: Consultations 01/02/20 10:38 Consult to Physician [CONS] Routine Labs Pending at D/C: None Recommended Follow-up Testing/Procedures: Follow-up with primary care provider within 5-7 days of discharge. Follow-up with Dr. Arredondo as discussed. Hospital Course: Kobe was admitted to the hospital floor due to severe hypokalemia, mild hyponatremia, dehydration, and acute kidney injury. He was also reporting epigastric abdominal pain. He has a history of opioid abuse in which he would snort 7 to 830 mg tablets of oxycodone per day. He was also utilizing kratom. He reports he has been using opioids for 10 years and kratom for 6 years. He has been involved with [facility] and seeing psychiatry there. He reports 5 days of sobriety from the substances and states he started to go through opioid withdrawals. He was having significant nausea and vomiting which appear to be worse at night. He was also reporting epigastric pain likely due to irritation from vomiting. Potassium was supplemented and he was given IV fluids with good response. He has nausea and vomiting did resolve. He was started on Carafate and twice daily Protonix. During his stay he did report an episode of difficulty swallowing and continued abdominal pain so general surgery was consulted for possible EGD. When he did see the patient , Dr. Geller, with general surgery, noted the patient was eating well and stated that the epigastric pain was improving. He did's feel that these Dems were likely related to opiate withdrawal. His suggestion was to continue the proton pump inhibitor at discharge for 30 days and have the patient follow-up with him should he continue to have symptoms. Prior to discharge patient reported his epigastric pain was much improved. Renal function did return to normal. UA was obtained and was positive and the patient had mild leukocytosis. He was started on 1 g Rocephin which was ultimately switched to vancomycin when the urine culture returned gram-positive cocci. Urine culture returned 2 organisms, one being a Staphylococcus coagulase-negative and the other being Staphylococcus epidermidis. Both were susceptible to Rocephin. He will be discharged on 1 more day of every 6 hour 250mg Keflex. He does report that he does utilize chewing tobacco and he received nicotine patches while here. We did discuss practical resources for smoking cessation and the patient was given phone numbers for local cessation programs. He was provided 15 mg nicotine patches at discharge as he reported he would like to continue with these. He was also discharged on 30 more days of daily Protonix as per the recommendation of Dr. Geller. Prior to discharge she was reporting some mild bilateral leg myalgias. Patient was advised that this is likely part of the withdrawal process and that should it continue or worsen he should see a primary care provider. He does not have a primary care provider in the area and he was set up with Dr. Crockett, internal medicine, for follow-up. He was instructed to follow-up with his psychiatrist. He was discharged home today. - Patient Instructions Diet: Usual Diet as Tolerated Diet, Other: Avoid spicy foods that could irritate stomach Activity: As Tolerated Showering/Bathing: May Shower Notify Provider of: Fever, Increased Pain, Nausea and/or Vomiting Other/Special Instructions: Follow-up with primary care provider within 5-7 days of discharge, sooner if needed. Follow-up with Dr. Arredondo, outpatient psychiatry, as discussed. We discussed your tobacco use status and you were given a list of resources to assist with cessation. Another great resource would be a primary care provider. You were prescribed nicotine patches. Take your antibiotic until gone, even if you feel 100% better. Remain sober. As we discussed, you may return to work on 01/07/2020 with light duty. You may resume normal work with no restrictions on 01/14/20. You were provided a note for work. Should symptoms return or worsen, contact primary care provider or return to the ED. - Discharge Plan *PRESCRIPTION DRUG MONITORING PROGRAM REVIEWED*: No *COPY OF PRESCRIPTION DRUG MONITORING REPORT IN PATIENT JED: No Prescriptions/Med Rec: cephALEXin [Keflex] 250 mg PO Q6HR #4 capsule Nicotine [Nicotine Patch] 14 mg TD DAILY #14 patch.td24 Pantoprazole [ProTONIX] 40 mg PO DAILY #30 tab.cr Home Medications: Home Meds Ondansetron [Zofran ODT] 4 mg PO Q4HR PRN 12/31/19 [History] Venlafaxine HCl [Venlafaxine ER] 37.5 mg PO DAILY 12/31/19 [History] traZODone HCl [Trazodone HCl] 75 mg PO BEDTIME 12/31/19 [History] Nicotine [Nicotine Patch] 14 mg TD DAILY #14 patch.td24 01/04/20 [Rx] Pantoprazole [ProTONIX] 40 mg PO DAILY #30 tab.cr 01/04/20 [Rx] cephALEXin [Keflex] 250 mg PO Q6HR #4 capsule 01/04/20 [Rx] Oxygen Therapy Mode: Room Air Patient Handouts: Type 2 Diabetes Mellitus, Diagnosis, Adult, Steps to Quit Smoking Referrals: Дмитрий Landa MD [Physician] - 01/15/20 1:30 pm (This appt. is at the hospital clinic side ([facility]). Please arrive 1p.m. for check in paper work, photo ID and insurance cards. If you need to change appt. date and time please call.) - Discharge Summary/Plan Comment DC Time >30 min.: Yes (45 mins ) - General Info Date of Service: 01/04/20 Admission Dx/Problem (Free Text: Admission Diagnosis/Problem Admission Diagnosis/Problem Hypokalemia Functional Status: Reports: Pain Controlled, Tolerating Diet, Ambulating, Urinating. Denies: New Symptoms - Review of Systems General: Reports: Weakness (improved). Denies: Fever, Fatigue, Malaise, Chills HEENT: Reports: No Symptoms. Denies: Headaches, Sore Throat Pulmonary: Reports: No Symptoms. Denies: Shortness of Breath, Cough, Sputum, Wheezing Cardiovascular: Reports: No Symptoms. Denies: Chest Pain, Palpitations, Edema Gastrointestinal: Reports: No Symptoms. Denies: Abdominal Pain, Constipation, Diarrhea, Nausea, Vomiting Genitourinary: Reports: No Symptoms. Denies: Pain Musculoskeletal: Reports: Leg Pain (bilateral ) Skin: Reports: No Symptoms. Denies: Cyanosis Neurological: Reports: No Symptoms. Denies: Confusion, Difficulty Walking, Gait Disturbance Psychiatric: Reports: No Symptoms - Patient Data Vitals - Most Recent: Last Vital Signs Temp 98.2 F 01/04/20 09:45 Pulse 88 01/04/20 09:45 Resp 19 01/04/20 09:45 BP 150/98 H 01/04/20 09:45 Pulse Ox 99 01/04/20 09:45 Orthostatic Blood Pressure [ 101/74 Standing] Orthostatic Blood Pressure [ 118/87 Supine] Weight - Most Recent: 141 lb 1.6 oz I&O - Last 24 hours: Intake & Output 01/03/20 01/04/20 01/04/20 22:59 06:59 14:59 Intake Total 935 1240 Output Total 1100 Balance 935 140 Lab Results - Last 24 hrs: Laboratory Results - last 24 hr 01/04/20 01/04/20 Range/Units 05:19 05:19 WBC 13.68 H (4.23-9.07) K/mm3 RBC 4.78 (4.63-6.08) M/mm3 Hgb 13.6 L (13.7-17.5) gm/dl Hct 40.0 L (40.1-51.0) % MCV 83.7 (79.0-92.2) fl MCH 28.5 (25.7-32.2) pg MCHC 34.0 (32.2-35.5) g/dl RDW Std Deviation 38.4 (35.1-43.9) fL Plt Count 356 H (163-337) K/mm3 MPV 11.0 (9.4-12.3) fl Neut % (Auto) 64.8 (34.0-67.9) % Lymph % (Auto) 21.5 L (21.8-53.1) % [place] % (Auto) 9.0 (5.3-12.2) % Eos % (Auto) 3.7 (0.8-7.0) Baso % (Auto) 0.4 (0.1-1.2) % Neut # (Auto) 8.86 H (1.78-5.38) K/mm3 Lymph # (Auto) 2.94 (1.32-3.57) K/mm3 [place] # (Auto) 1.23 H (0.30-0.82) K/mm3 Eos # (Auto) 0.51 (0.04-0.54) K/mm3 Baso # (Auto) 0.06 (0.01-0.08) K/mm3 Sodium 136 (136-145) mEq/L Potassium 3.6 (3.5-5.1) mEq/L Chloride 101 (98-107) mEq/L Carbon Dioxide 24 (21-32) mEq/L Anion Gap 14.6 (5-15) BUN 11 (7-18) mg/dL Creatinine 1.0 (0.7-1.3) mg/dL Est Cr Clr Drug Dosing 89.78 mL/min Estimated GFR (MDRD) > 60 (>60) mL/min BUN/Creatinine Ratio 11.0 L (14-18) Glucose 106 (74-106) mg/dL Calcium 9.0 (8.5-10.1) mg/dL Magnesium 1.8 (1.8-2.4) mg/dl HELEN Results - Last 24 hrs: Microbiology 12/31/19 20:30 Urine Culture - Preliminary Urine, Clean Catch Staphylococcus Coagulase Neg Staphylococcus Epidermidis Med Orders - Current: Current Medications Acetaminophen (Tylenol) 650 mg PO Q4H PRN PRN Reason: Pain (Mild 1-3)/fever Last Admin: 01/04/20 11:35 Dose: 650 mg Lorazepam (Ativan) 1 mg PO Q6H PRN PRN Reason: Anxiety Miscellaneous Information (Remove Patch) 1 ea TRDERM BEDTIME [facility] Last Admin: 01/03/20 21:30 Dose: 1 ea Nicotine (Habitrol) 21 mg TRDERM Q24H [facility] Last Admin: 01/04/20 09:46 Dose: 21 mg Pantoprazole Sodium (Protonix) 40 mg PO BID [facility] Last Admin: 01/04/20 09:46 Dose: 40 mg Prochlorperazine Edisylate (Compazine) 5 mg IVPUSH Q6H PRN PRN Reason: Nausea/Vomiting Last Admin: 12/31/19 21:33 Dose: 5 mg Sodium Chloride (Saline Flush) 10 ml FLUSH ASDIRECTED PRN PRN Reason: Keep Vein Open Last Admin: 12/31/19 15:41 Dose: 10 ml Sucralfate (Carafate) 1 gm PO QIDACANDBED [facility] Last Admin: 01/04/20 11:35 Dose: 1 gm Venlafaxine HCl (Effexor Xr) 37.5 mg PO DAILY [facility] Last Admin: 01/04/20 09:46 Dose: 37.5 mg Discontinued Medications Al Hydroxide/Mg Hydroxide 30 (ml/ Lidocaine HCl 15 ml) 0 ml PO ONETIME ONE Stop: 01/02/20 10:01 Last Admin: 01/02/20 09:59 Dose: 45 ml Sodium Chloride (Normal Saline) 1,000 mls @ 999 mls/hr IV ASDIRECTED [facility] Last Infusion: 12/31/19 16:41 Dose: Infused Potassium Chloride 10 meq/ (Premix) 100 mls @ 100 mls/hr IV Q1H [facility] Stop: 12/31/19 20:44 Last Admin: 12/31/19 20:28 Dose: 100 mls/hr Sodium Chloride (Normal Saline) 1,000 mls @ 150 mls/hr IV ASDIRECTED [facility] Last Admin: 12/31/19 17:40 Dose: 150 mls/hr Potassium Chloride 10 meq/ (Premix) 100 mls @ 100 mls/hr IV Q1H [facility] Stop: 01/01/20 02:29 Last Admin: 01/01/20 00:55 Dose: 100 mls/hr Potassium Chloride/Dextrose/Sod Cl (D5 1/2 Ns W/ 20 Meq/L Kcl) 1,000 mls @ 150 mls/hr IV ASDIRECTED [facility] Last Admin: 01/02/20 06:09 Dose: 150 mls/hr Promethazine HCl 12.5 mg/ (Sodium Chloride) 50.5 mls @ 100 mls/hr IV Q6H PRN PRN Reason: Nausea/Vomiting Ceftriaxone Sodium 1 gm/ (Sodium Chloride) 100 mls @ 200 mls/hr IV Q24H [facility] Last Admin: 01/01/20 08:42 Dose: 200 mls/hr Potassium Chloride 10 meq/ (Premix) 100 mls @ 100 mls/hr IV Q1H [facility] Stop: 01/01/20 16:29 Last Admin: 01/01/20 16:14 Dose: 100 mls/hr Magnesium Sulfate 2 gm/ Premix 50 mls @ 25 mls/hr IV ONETIME ONE Stop: 01/02/20 09:33 Last Admin: 01/02/20 08:19 Dose: 25 mls/hr Ceftriaxone Sodium 1 gm/ (Sodium Chloride) 100 mls @ 200 mls/hr IV Q24H [facility] Last Admin: 01/02/20 11:28 Dose: Not Given Potassium Chloride 10 meq/ (Premix) 100 mls @ 100 mls/hr IV Q1H [facility] Stop: 01/02/20 16:29 Last Admin: 01/02/20 16:33 Dose: 100 mls/hr Ceftriaxone Sodium 1 gm/ (Sodium Chloride) 100 mls @ 200 mls/hr IV Q24H [facility] Last Admin: 01/03/20 10:42 Dose: 200 mls/hr Potassium Chloride/Dextrose/Sod Cl (D5 1/2 Ns W/ 20 Meq/L Kcl) 1,000 mls @ 75 mls/hr IV ASDIRECTED [facility] Last Admin: 01/03/20 02:52 Dose: 75 mls/hr Vancomycin HCl 1 gm/ Sodium (Chloride) 250 mls @ 250 mls/hr IV Q12H [facility] Last Admin: 01/04/20 03:05 Dose: 250 mls/hr Lorazepam (Ativan) 1 mg IVPUSH Q4H PRN PRN Reason: Anxiety Last Admin: 01/04/20 04:19 Dose: 1 mg Magnesium Oxide (Magnesium Oxide) 400 mg PO ONETIME ONE Stop: 01/01/20 10:31 Last Admin: 01/01/20 10:30 Dose: 400 mg Miscellaneous Information (Remove Patch) 1 ea TRDERM Q24H [facility] Last Admin: 01/02/20 10:51 Dose: 1 ea Nicotine (Habitrol) 21 mg TRDERM Q24H [facility] Last Admin: 01/02/20 10:50 Dose: 21 mg Ondansetron HCl (Zofran) 4 mg IVPUSH ONETIME ONE Stop: 12/31/19 15:23 Last Admin: 12/31/19 15:41 Dose: 4 mg Ondansetron HCl (Zofran) 4 mg IVPUSH Q4H PRN PRN Reason: Nausea/Vomiting Pantoprazole Sodium (Protonix Iv) 40 mg IVPUSH Q12HR [facility] Last Admin: 01/01/20 08:16 Dose: 40 mg Trazodone HCl (Trazodone) 75 mg PO BEDTIME [facility] Trazodone HCl (Trazodone) 50 mg PO ONETIME ONE Stop: 01/02/20 21:31 Last Admin: 01/02/20 21:01 Dose: 50 mg Vancomycin HCl (Pharmacy To Dose - Vancomycin) 1 dose .XX ASDIRECTED [facility] Venlafaxine HCl (Effexor Xr) 37.5 mg PO DAILY [facility] Last Admin: 01/01/20 08:15 Dose: 37.5 mg Venlafaxine HCl (Effexor Xr) 37.5 mg PO DAILY [facility] Last Admin: 01/02/20 08:28 Dose: 37.5 mg - Exam Quality Assessment: Reports: DVT Prophylaxis General: Reports: Alert, Oriented, Cooperative, No Acute Distress HEENT: Reports: Pupils Equal, Pupils Reactive, Mucous Membr. Moist/Nada Neck: Reports: Supple, Trachea Midline Lungs: Reports: Clear to Auscultation, Normal Respiratory Effort Cardiovascular: Reports: Regular Rate, Regular Rhythm GI/Abdominal Exam: Normal Bowel Sounds, Soft, Non-Tender, No Distention Rectal (Males) Exam: Deferred Back Exam: Reports: Normal Inspection, Full Range of Motion. Denies: CVA Tenderness (L), CVA Tenderness (R) Extremities: Normal Inspection, Normal Range of Motion, Non-Tender, No Pedal Edema, Normal Capillary Refill, Leg Pain (mild bilateral myalgias ) Skin: Reports: Warm, Dry, Intact Neurological: Reports: No New Focal Deficit Psy/Mental Status: Reports: Alert
== END 2020-01-04 13:34 | disposition home or self-care (01) | DRG 469 ==
LOC: JD.ED 14:47 → UNDOADMOB 16:43 → JD.MS 16:43 → OBSVTOIN 01-02 09:46 → INTOOBSV 01-02 09:46 → JD.MS 01-03 09:17 → OBSVTOIN 01-03 09:17
PROVIDERS: ADMIT Family Medicine; ATTEND Family Medicine
DX: N17.9 Acute kidney failure, unspecified (principal); E87.1 Hypo-osmolality and hyponatremia; E87.6 Hypokalemia; N39.0 Urinary tract infection, site not specified; F11.23 Opioid dependence with withdrawal; R94.31 Abnormal electrocardiogram [ECG] [EKG]; E86.0 Dehydration; B95.7 Other staphylococcus as the cause of diseases classified elsewhere; M79.18 Myalgia, other site; F41.9 Anxiety disorder, unspecified; F17.220 Nicotine dependence, chewing tobacco, uncomplicated; Z71.6 Tobacco abuse counseling; Z79.899 Other long term (current) drug therapy; Z87.442 Personal history of urinary calculi
CPT/HCPCS: 36415; 74019; 74019-26; 80048; 80053; 80306; 81001; 83690; 83735; 84100; 84443; 85025; 86140; 87086; 87088; 87186; 93005; 96361; 96365; 96366; 96368; 96374; 96375; 96376; 99220; 99225; 99232; 99239; 99284; 99285-25; A9270-GY; C9113; G0378; J0696; J0780; J2060; J2405; J3370; J3475; J3480; J7030; J7050

== ENCOUNTER 2024-03-24 21:24 | Emergency (ER) | payer SELFPAY ==
[2024-03-24 21:50] VITALS: PULSE 85
[2024-03-24 22:07] LABS: BASOPHILS PERCENT AUTO 0.4 % (0.0-1.0); EOSINOPHILS ABSOLUTE AUTO 0.2 K/mm3 (0.0-0.4); EOSINOPHILS PERCENT AUTO 1.5 % (0.0-6.0); HEMATOCRIT 37.2 % (42.0-52.0); HEMOGLOBIN 12.5 gm/dl (14.0-18.0); IMMATURE GRAN ABSOLUTE AUTO 0.03 K/mm3 (0.00-0.05); IMMATURE GRAN PERCENT AUTO 0.3 % (0.0-0.4); LYMPHOCYTES PERCENT AUTO 28.4 % (24.0-44.0); MEAN CORPUSCULAR HEMOGLOBIN 29.4 pg (28.0-32.0); MEAN CORPUSCULAR HGB CONC 33.6 g/dl (32.0-36.0); MEAN CORPUSCULAR VOLUME 87.5 fl (83.0-99.0); MEAN PLATELET VOLUME 10.5 fl (9.4-12.4); MONOCYTES ABSOLUTE AUTO 0.7 K/mm3 (0.0-0.8); MONOCYTES PERCENT AUTO 6.2 % (0.0-8.0); NEUTROPHILS ABSOLUTE AUTO 6.8 K/mm3 (1.8-7.7); NEUTROPHILS PERCENT AUTO 63.2 % (41.0-71.0); PLATELET COUNT,PLT 271 K/mm3 (150-400); RED BLOOD CELL COUNT 4.25 M/mm3 (4.52-5.90); WHITE BLOOD CELL COUNT,WBC 10.71 K/mm3 (3.9-11.3)
[2024-03-24] MEDS: Ketorolac 30 MG/ML SDV IVPUSH ONE (22:09)
[2024-03-24] MEDS: Ondansetron 4 MG/2 ML SDV IVPUSH ONE (22:09)
[2024-03-24] MEDS: Sodium Chloride 0.9% 1,000 ML IV SCH (22:09)
[2024-03-24] MEDS: HYDROmorphone 0.5 MG/0.5 ML Syringe IVPUSH ONE ×2 (22:10→23:49)
[2024-03-24] MEDS: Sodium Chloride 0.9% 10 ML Syringe FLUSH PRN (22:10)
[2024-03-24 22:28] LABS: A/G RATIO 0.9 (1-2); ALBUMIN 3.7 g/dl (3.4-5.0); ANION GAP 10.2 (5-15); BILIRUBIN TOTAL 0.2 mg/dL (0.2-1.0); BUN/CREATININE RATIO 5.8 (14-18); CREATININE 1.2 mg/dL (0.7-1.3); EST CRCL DRUG DOSING (CG) 80.5 mL/min; POTASSIUM,K 3.2 mEq/L (3.5-5.1); PROTEIN TOTAL,TP 7.7 g/dl (6.4-8.2)
[2024-03-24 23:20] LABS: APPEARANCE,URINE SLT CLOUDY (Clear); BILIRUBIN,URINE NEGATIVE (Negative); COLOR,URINE AMBER (Yellow); GLUCOSE,URINE NEGATIVE (Negative); KETONES,URINE TRACE (Negative); LEUKOCYTE ESTERASE,URINE NEGATIVE (Negative); NITRITE,URINE NEGATIVE (Negative); OCCULT BLOOD,URINE 3+ (Negative); PH,URINE 5.5 (5.0-8.0); PROTEIN,URINE 2+ (Negative); UROBILINOGEN,URINE 0.2 (0.2-1.0)
[2024-03-24 23:38] LABS: BACTERIA,URINE FEW /hpf (FEW); CALCIUM OXALATE CRYSTALS,URINE FEW; EPITHELIAL CELLS,URINE NOT SEEN /hpf (0-5); RBC,URINE TOO NUMEROUS TO CNT /hpf (0-5); WBC,URINE 0-5 /hpf (0-5)
[2024-03-24 23:39] LABS: HYALINE CASTS,URINE 0-5 /lpf (0-5); MUCUS,URINE FEW /hpf (FEW)
[2024-03-25 00:03] VITALS: BP 126/80
== END 2024-03-25 00:05 | disposition home or self-care (01) ==
LOC: JD.ED 21:24
DX: N13.2 Hydronephrosis with renal and ureteral calculous obstruction (principal)
CPT/HCPCS: 36415; 74176; 80053; 81001; 83690; 85025; 96361; 96374; 96375; 96376; 99284; J1170; J1885; J2405; J3490; J7030